=== PATIENT | female | born 1995 | race Caucasian/White ===

== ENCOUNTER 2020-04-02 13:39 | Outpatient (REF) | payer OTHER, SELFPAY | END 2020-04-02 13:40 | disposition home or self-care (01) | LOC: HO.LAB 13:39 | PROVIDERS: Visit Provider Advanced Practice Midwife | DX: Z01.419 Encounter for gynecological examination (general) (routine) without abnormal findings (principal) | CPT/HCPCS: 88142 ==

== ENCOUNTER 2020-06-07 09:28 | Outpatient (REF) | payer OTHER, SELFPAY ==
[2020-06-07 09:48] LABS: COVID-19 Test Negative (Negative)
== END 2020-06-07 09:29 | disposition home or self-care (01) ==
LOC: HO.EMPCOV 09:28
PROVIDERS: PCP Internal Medicine; Visit Provider Internal Medicine
DX: Z20.828 Contact with and (suspected) exposure to other viral communicable diseases (principal)
CPT/HCPCS: 87635; C9803

== ENCOUNTER 2020-06-09 09:26 | Outpatient (REF) | payer OTHER, SELFPAY ==
[2020-06-09 09:42] LABS: COVID-19 Test Negative (Negative); IDNOW Serial# 55D5AD1C
== END 2020-06-09 09:27 | disposition home or self-care (01) ==
LOC: HO.EMPCOV 09:26
PROVIDERS: PCP Internal Medicine; Visit Provider Internal Medicine
DX: Z20.828 Contact with and (suspected) exposure to other viral communicable diseases (principal)
CPT/HCPCS: 87635; C9803

== ENCOUNTER 2020-07-29 11:00 | Outpatient (RCR) | payer OTHER, SELFPAY | END 2020-09-09 13:49 | disposition home or self-care (01) | LOC: HO.PT 11:00 | PROVIDERS: Visit Provider Physician Assistant | DX: M22.2X1 Patellofemoral disorders, right knee (principal); M76.9 Unspecified enthesopathy, lower limb, excluding foot | CPT/HCPCS: 97110; 97112; 97140; 97161; 97530 ==

== ENCOUNTER 2021-03-20 13:48 | Outpatient (REF) | payer OTHER, SELFPAY ==
[2021-03-20 14:22] LABS: COVID-19 Test Negative (Negative)
== END 2021-03-20 13:49 | disposition home or self-care (01) ==
LOC: HO.LAB 13:48
PROVIDERS: PCP Internal Medicine; Visit Provider Internal Medicine
DX: Z20.822 Contact with and (suspected) exposure to COVID-19 (principal)
CPT/HCPCS: 36415; 87635

== ENCOUNTER 2021-04-22 08:11 | Outpatient (REF) | payer OTHER, SELFPAY | END 2021-04-22 08:12 | disposition home or self-care (01) | LOC: HO.HOSX 08:11 | PROVIDERS: Visit Provider Physician Assistant | DX: Z13.89 Encounter for screening for other disorder (principal) ==

== ENCOUNTER 2021-05-04 18:44 | Outpatient (REF) | payer OTHER, SELFPAY ==
--- NOTE | ~2021-05-04 | MR_ITS ---
EXAMINATION: MR KNEE WITHOUT CONTRAST, LEFT CLINICAL INFORMATION: Posterior left knee pain and buckling. Recurrent patellar dislocation. COMPARISON: None. TECHNIQUE: MRI of the knee without contrast was performed using routine sequences on a high-field scanner. FINDINGS: MENISCI: Medial Meniscus: Intact. Lateral Meniscus: Intact. LIGAMENTS: Cruciate: Intact. Collateral: Intact. EXTENSOR MECHANISM: The patella is currently well seated within the trochlea. Normal patellofemoral alignment. Intact quadriceps and patellar tendons. ARTICULAR CARTILAGE/BONE: Patellofemoral Compartment: Full-thickness articular cartilage defect at the inferior aspect the lateral patellar facet measuring 1.2 x 0.5 cm (CC by ML) with underlying marrow edema. Medial Compartment: Normal. Lateral Compartment: Normal. JOINT FLUID AND BURSAE: Trace joint effusion and trace Mane's cyst. MR/MR knee LT wo con IMPRESSION: 1. Full-thickness articular cartilage defect at the inferior aspect of the lateral patellar facet measuring 1.2 x 0.5 cm with underlying marrow edema. 2. Trace joint effusion and trace Mane's cyst. 3. No acute meniscal or ligamentous injury.
== END 2021-05-04 18:45 | disposition home or self-care (01) ==
LOC: HO.MRI 18:44
PROVIDERS: Visit Provider Physician Assistant
DX: Z01.419 Encounter for gynecological examination (general) (routine) without abnormal findings (principal); M22.02 Recurrent dislocation of patella, left knee; R68.82 Decreased libido
CPT/HCPCS: 73721

== ENCOUNTER → 2021-05-25 10:32 | Outpatient (BNVA) | payer OTHER, SELFPAY | PROVIDERS: PCP Student in an Organized Health Care Education/Training Program; Visit Provider Physician Assistant ==

== ENCOUNTER 2021-08-09 11:00 | Outpatient (RCR) | payer OTHER, SELFPAY ==
--- NOTE | 2021-06-22 12:02 | MHC.PT.EP ---
[facility] [place] [facility] [place] [facility] [place] [facility] [address] Willam Suárez [address] [phone] F: [phone] F: [phone] F: [phone] F: [phone] Physical Therapy Plan of Care Date of Evaluation: Date of Surgery: NA Diagnosis: Recurrent dislocation of patella, L knee Assessment: Shaye is a 25 year old female who is referred to PT for recurrent dislocation of L knee . Pt reports of sustaining patellar dislocation about 2.5 months back. Her patella relocated spontaneously however had significant pain and swelling after. On PT examination she presents with 8/10 pain with stair negotiation, knee bending, and running, TTP over infero-medial aspect of patella, altered patella position, decreased muscle strength, impaired posture and gait. She is independent with all ADLs but has pain with activities requiring her to stand for long, run, knee bending and stair negotiation. 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 She would benefit from skilled PT to address the aforementioned impairments and improve tolerance to functional activities. Frequency and Duration: The patient will be seen 2/week for 7 weeks Short Term Goals: 1. Pt will have 50% decrease in pain in 2 weeks which will enable her to walk after prolonged sitting without pain. 2. Pt will be able to move her knee through full ROM without pain which will enable her to negotiate stairs without pain in 3 weeks Retirement Goals: 1. Pt will demonstrate an increase in muscle strength by 1 grade which will enable her return to light jogging without pain in 5 weeks. 2. Pt will return to PLOF- skiiing, playing soft ball without pain in 7 weeks. Treatment Plan: Modalities to reduce pain, spasms and effusion. Manual therapy to restore motion and function. Therapeutic exercise to improve strength and flexibility. Neuromuscular re-education for posture and balance. Therapeutic activities to return to functional activities of daily living. Electronically signed by: Pam Ross PT DPT Please sign and return to therapist. Thank you for your referral.
--- NOTE | 2021-09-02 08:34 | MHC.PT.DC ---
[facility] [place] [facility] [place] [facility] [place] [facility] [address] Willam Suárez [address] [phone] F: [phone] F: [phone] F: [phone] F: [phone] Physical Therapy Discharge Report Diagnosis: Recurrent dislocation of patella, L knee Date of Surgery: NA Date of Evaluation: 06/22/21 Date of Discharge: 09/02/21 Treatments to Date: 9 Cancellations to Date: 1 No Shows to Date: 0 Discharge Status: Improved Function Independent with HEP Discharge Summary: Shaye was making good progress and demonstrated improved function as well. She is independent with her HEP. She is therefore being d/c from PT. Electronically signed by: Pam Ross PT DPT Please sign and return to therapist. Thank you for your referral.
== END 2021-09-02 08:35 | disposition home or self-care (01) ==
LOC: HO.PT 11:00
PROVIDERS: Visit Provider Physician Assistant
DX: M22.02 Recurrent dislocation of patella, left knee (principal); M22.8X2 Other disorders of patella, left knee
CPT/HCPCS: 97110; 97112; 97140; 97161; 97530

== ENCOUNTER 2022-01-05 09:26 | Outpatient (REF) | payer OTHER, SELFPAY ==
[2022-01-05 09:48] LABS: MANUAL DIFF FLAG NO
[2022-01-05 09:56] LABS: Basophils Percent Auto 0.5 % (0-2); Eosinophils Absolute Auto 0.2 X10*3/uL (0.0-0.4); Eosinophils Percent Auto 2.9 % (0-4); Hematocrit 38.1 % (37.0-47.0); Hemoglobin 12.5 g/dl (12.0-16.0); Imm Gran Abs Auto 0.02 X10*3/uL (0.00-0.03); Imm Gran Pct Auto 0.3 % (0.0-0.4); Lymphocytes Absolute Auto 1.4 X10*3/uL (1.2-4.9); Lymphocytes Percent Auto 22.7 % (20-40); Mean Corpuscular HGB Conc 32.8 g/dl (31.0-35.0); Mean Corpuscular Hemoglobin 30.5 pg (27.0-33.0); Mean Corpuscular Volume 92.9 fL (80.0-98.0); Mean Platelet Volume 10.1 fL (9.4-12.3); Monocytes Absolute Auto 0.6 X10*3/uL (0.1-1.2); Monocytes Percent Auto 9.8 % (2-11); Neutrophils Absolute Auto 3.8 x10*3/uL (2.0-8.3); Neutrophils Percent Auto 63.8 % (45-73); Platelet Count 218 X10*3/uL (160-400); Red Cell Distribution Width 12.2 % (11.0-16.0); White Blood Count 5.9 X10*3/uL (4.8-10.8)
[2022-01-05 10:29] LABS: Alanine Aminotransferase 23 U/L (0-31); Albumin Level 3.9 g/dL (3.5-5.0); Alkaline Phosphatase 59 U/L (39-117); Anion Gap 11 (12-20); Aspartate Amino Transferase 64 U/L (5-31); Bilirubin Total 0.5 mg/dL (0.0-1.0); Blood Urea Nitrogen 13 mg/dL (9-16); Calcium 8.6 mg/dL (8.4-10.2); Carbon Dioxide 24 mmol/L (22-29); Chloride 110 mmol/L (96-108); Cholesterol 141 mg/dL; Estimated Glomerular Filt Rate > 60; Glucose Fasting 91 mg/dL (60-99); HDL Cholesterol 45 mg/dL; LDL Cholesterol Calculated 85 mg/dl; Potassium 4.5 mmol/L (3.3-5.1); Sodium 140 mmol/L (135-145); Total Protein 6.6 g/dL (6.5-8.0); Triglycerides 59 mg/dL
[2022-01-05 10:51] LABS: Thyroid Stimulating Hormone 3.26 uIU/mL (0.32-4.0); Vitamin D 25-OH Total 58.8 ng/mL (>30)
[2022-01-05 10:56] LABS: Vitamin B12 425 pg/mL (200-900)
== END 2022-01-05 09:27 | disposition home or self-care (01) ==
LOC: HO.LAB 09:26
PROVIDERS: PCP Internal Medicine; Visit Provider Internal Medicine
DX: Z00.00 Encounter for general adult medical examination without abnormal findings (principal); R00.2 Palpitations; R53.82 Chronic fatigue, unspecified
CPT/HCPCS: 36415; 80053; 80061; 82306; 82607; 82746; 84443; 85025

== ENCOUNTER 2022-01-23 12:10 | Outpatient (REF) | payer OTHER, SELFPAY | END 2022-01-23 12:11 | disposition home or self-care (01) | LOC: HO.LNP 12:10 | PROVIDERS: Visit Provider Family Medicine | DX: N39.0 Urinary tract infection, site not specified (principal) | CPT/HCPCS: 87086; 87088; 87186 ==

== ENCOUNTER → 2022-02-01 13:00 | Outpatient (REF) | payer OTHER, SELFPAY ==
--- NOTE | 2022-02-01 11:45 | ECG_ITS ---
Hook-up date: 2022-02-01 12:10:00 Duration: 26:14:00 Test Indications: PALPITATIONS Medications: 308080 QRS complexes 5 Ventricular ectopics which represent <1 % of total QRS comp. * Supraventricular ectopics which represent % of total QRS comp. * Paced QRS complexs which represent % of total QRS comp. VENTRICULAR ECTOPY 5 Isolated 0 Bigeminal Cycles 0 Couplets 0 Runs 0 Beats in Runs * Beats LONGEST at * BPM at :: -- * Beats FASTEST at * BPM at :: -- SUPRAVENTRICULAR ECTOPY * Isolated * Couplets * Runs * Beats in Runs * Beats LONGEST at * BPM at :: -- * Beats FASTEST at * BPM at :: -- HEART RATES 51 MIN at 22:49:39 2022-02-01 80 AVG 157 MAX at 10:02:34 2022-02-02 LONGEST RR 1.2640 secs at 22:50:53 2022-02-01 S-T LEVELS Channel 1 - 128 mm at 12:10:00 2022-02-01 - 128 mm at 12:10:00 2022-02-01 Channel 2 - 128 mm at 12:10:00 2022-02-01 - 128 mm at 12:10:00 2022-02-01 Channel 3 - 128 mm at 03:12:91 -- - 128 mm at 03:12:91 Basic rhythm Normal sinus rhythm No long pause or profound bradycardia No dangerous dysrhythm periods Patient reported symptoms correlated with NSR Referred By: Dolly Mcneal Overread By: BELKIS AGUILAR MD
== END ==
LOC: HO.CARD 13:00
PROVIDERS: Visit Provider Internal Medicine
DX: R00.2 Palpitations (principal)
CPT/HCPCS: 93225; 93226

== ENCOUNTER 2022-03-17 09:27 | Outpatient (REF) | payer OTHER, SELFPAY ==
--- NOTE | ~2022-03-17 | US_ITS ---
EXAMINATION: US COMPLETE ABDOMEN WITH LIVER ELASTOGRAPHY CLINICAL INFORMATION: Elevated liver transaminase levels. COMPARISON: None. TECHNIQUE: Real-time imaging of the abdominal viscera. Noninvasive ultrasound liver fibrosis assessment is performed using Cordelia ElastPQ point quantification shear wave elastography (2D-SWE) with a C5-2 MHz transducer. Multiple elastography samples are obtained. FINDINGS: PANCREAS: Normal. The visualized pancreatic head and body are normal in appearance. The remainder of the pancreas is obscured from visualization by the overlying bowel gas. ABDOMINAL AORTA: The proximal, middle, and distal aortic segments are normal in caliber. INFERIOR VENA CAVA: Visualized portions are normal. LIVER: The liver demonstrates normal size, contour and heterogeneous echogenicity. No focal lesion or intrahepatic biliary duct dilatation. The right lobe measures 15.0 cm in length. The left lobe measures 10.4 cm in length. Portal flow is towards the liver (hepatopetal). Shear wave liver elastography median stiffness is 1.43 m/s (reference: normal median stiffness is 1.3 m/s or less). IQR/median stiffness to assess sampling precision is 0.08 (reference: good quality data set is IQR/median stiffness of 0.15 or less). GALLBLADDER: Normal. The gallbladder is physiologically distended without evidence of stones, sludge, polyps, wall thickening or pericholecystic fluid. COMMON BILE DUCT: Normal in caliber measuring 0.3 cm in diameter. RIGHT KIDNEY: Normal. No hydronephrosis. No renal calculi or focal parenchymal lesions. The kidney measures 10.4 cm in maximum dimension. LEFT KIDNEY: Normal. No hydronephrosis. No renal calculi or focal parenchymal lesions. The kidney measures 10.4 cm in maximum dimension. SPLEEN: Normal. The spleen measures 11.5 cm in maximum dimension. FREE FLUID: None. US/US abdomen comp w elastography IMPRESSION: 1. There is generalized increase in hepatic echotexture, consistent with fatty infiltration or hepatocellular disease. Please correlate clinically. No focal hepatic mass or intrahepatic biliary dilatation is seen. 2. Liver elastography: In the absence of other known clinical signs, measurements rule out compensated advanced chronic liver disease. If there are known clinical signs, further testing may be needed for confirmation. REFERENCE: Society of Radiologists in Ultrasound Liver Stiffness Thresholds (2020): LIVER STIFFNESS THRESHOLDS: *Liver Stiffness equal or less than 1.3 m/s: High probability of being normal. *Liver Stiffness less than 1.7 m/s: In the absence of other known clinical signs, rules out compensated advanced chronic liver disease. *Liver Stiffness 1.7-2.1 m/s: Suggestive of compensated advanced chronic liver disease but need further test for confirmation. *Liver Stiffness over 2.1 m/s: Rules in compensated advanced chronic liver disease. *Liver Stiffness over 2.4 m/s: Suggestive of clinically significant portal hypertension. QUALITY OF DATA SET: *IQR/Median value equal or less than 0.15 implies a quality data set. *IQR/Median value over 0.15 implies a poor quality data set. SIGNIFICANT CHANGE FROM PRIOR EXAM: Significant change if liver stiffness measurement is 10% or greater from prior exam. OTHER CONSIDERATIONS: The stage of liver fibrosis may be overestimated in the setting of acute hepatitis, liver inflammation, elevated liver function tests, hepatic vascular congestion, obstructive cholestasis, non-fasting state, and infiltrative diseases such as amyloidosis and lymphoma. In some patients with NAFLD, the liver stiffness thresholds for compensated advanced chronic liver disease may be lower. In causes other than viral hepatitis and NAFLD, liver stiffness thresholds are not well established.
== END 2022-03-17 09:28 | disposition home or self-care (01) ==
LOC: HO.US 09:27
PROVIDERS: Visit Provider Internal Medicine
DX: R74.01 Elevation of levels of liver transaminase levels (principal)
CPT/HCPCS: 76705; 76981

== ENCOUNTER 2022-05-28 08:00 | Outpatient (REF) | payer OTHER, SELFPAY ==
[2022-05-28 09:00] LABS: Influenza A PCR NEGATIVE (Negative); Influenza B PCR NEGATIVE (Negative); Resp Syncy Virus RNA Qual PCR NEGATIVE (Negative); SARS COV2 PCR INHOUSE NEGATIVE (Negative)
== END 2022-05-28 08:01 | disposition home or self-care (01) ==
LOC: HO.LAB 08:00
PROVIDERS: Visit Provider Internal Medicine
DX: Z20.822 Contact with and (suspected) exposure to COVID-19 (principal)
CPT/HCPCS: 0241U

== ENCOUNTER 2022-07-11 12:51 | Outpatient (REF) | payer OTHER, SELFPAY ==
[2022-07-11 14:21] LABS: INTERNATIONAL NORM RATIO 0.9 (0.9-1.1); Prothrombin Time 10.8 SEC (10.0-13.1)
[2022-07-11 15:38] LABS: Alanine Aminotransferase 6 U/L (0-31); Albumin Level 4.1 g/dL (3.5-5.0); Alkaline Phosphatase 56 U/L (39-117); Aspartate Amino Transferase 16 U/L (5-31); Bilirubin Direct 0.2 mg/dL (0.0-0.5); Bilirubin Total 0.6 mg/dL (0.0-1.0); Total Protein 6.6 g/dL (6.5-8.0)
[2022-07-12 08:31] LABS: Hepatitis A Antibody IgG Nonreactive (Nonreactive); ~Hepatitis A Antibody IgG 0.25 S/CO (0.00-0.99)
[2022-07-12 08:32] LABS: HBS Num1 50.18 mIU/mL (0-7.99); HBsAGNum1 0.35 S/CO (0.00-0.99); HIV AB/AG Nonreactive (Nonreactive); HIV Num 1 0.06 S/CO (0.00-0.99); Hepatitis B Core Antibody Nonreactive (Nonreactive); Hepatitis B Surface Antigen Negative (Negative); ~HepC Num1 0.12 S/CO (0.00-0.79); ~Hepatitis B Surface Antibody REACTIVE (Nonreactive); ~Hepatitis C Antibody Nonreactive (Nonreactive)
[2022-07-25 08:19] LABS: Phosphatidylethanol 16:0-18:1 None Detected
== END 2022-07-11 12:52 | disposition home or self-care (01) ==
LOC: HO.LAB 12:51
PROVIDERS: PCP Internal Medicine; Visit Provider Internal Medicine
DX: Z11.4 Encounter for screening for human immunodeficiency virus [HIV] (principal); R13.10 Dysphagia, unspecified; R74.01 Elevation of levels of liver transaminase levels
CPT/HCPCS: 36415; 80076; 80321; 85610; 86704; 86706; 86708; 86803; 87340; 87389

== ENCOUNTER 2022-07-12 07:53 | Outpatient (REF) | payer OTHER, SELFPAY ==
--- NOTE | ~2022-07-12 | FL_ITS ---
EXAMINATION: FL BARIUM SWALLOW CLINICAL INFORMATION: Dysphagia COMPARISON: None TECHNIQUE: Barium swallow examination is performed using fluoroscopic evaluation in addition to multiple fluoroscopic spot views. The patient is imaged both upright and prone and using both thick and thin sulfate along with effervescent granules. Fluoroscopy time: 1.6 minutes DAP: 4.926 Gycm2 Images: 42 FINDINGS: Following oral administration of thin, thick barium and barium coated turkey in upright view there is normal propagation of bolus from the oral cavity through the pharynx, esophagus into stomach without any evidence of obstruction, narrowing or stricture. There is no laryngeal aspiration or penetration. On placing patient prone lying and oral administration of thin barium there is good distention of the entire esophagus without any intrinsic or extrinsic compression. No mucosal irregularity seen in the pharynx or the esophagus. There is no hiatal hernia or gastroesophageal reflux. FL/FL barium swallow IMPRESSION: Unremarkable barium swallow in upright and lying position.
== END 2022-07-12 07:54 | disposition home or self-care (01) ==
LOC: HO.XRAY 07:53
PROVIDERS: PCP Internal Medicine; Visit Provider Internal Medicine
DX: R13.10 Dysphagia, unspecified (principal)
CPT/HCPCS: 74220

== ENCOUNTER → 2022-09-05 12:53 | Outpatient (BNVA) | payer OTHER, SELFPAY | PROVIDERS: PCP Internal Medicine; Visit Provider Internal Medicine | DX: Z13.89 Encounter for screening for other disorder (principal) ==

== ENCOUNTER → 2023-03-21 09:01 | Outpatient (BNVA) | payer OTHER, SELFPAY | PROVIDERS: PCP Internal Medicine; Visit Provider Physician Assistant | DX: Z13.89 Encounter for screening for other disorder (principal) | CPT/HCPCS: 99203 ==

== ENCOUNTER 2023-04-17 11:44 | Outpatient (AMB) | payer OTHER, SELFPAY ==
[2023-04-17 12:08] VITALS: BP 118/72; PULSE 92; O2SAT 97; BMI 21.6
--- NOTE | 2023-04-17 12:08 | MHC.OFFWIV ---
Intake Vital Signs 04/17/23 12:08 Height 5 ft 8 in Weight 142 lb 3 oz BMI 21.6 BP 118/72 Blood Pressure Location Lt brachial Position Sitting Pulse 92 Pulse Source Pulse Oximeter Pulse Oximetry (%) 97 Oxygen Delivery Method Room Air Intake Visit Reasons: EST/UTI Patient Tobacco Use Status: Never used Tobacco Allergies amoxicillin [Augmentin] Adverse Reaction (Unknown, Verified 04/17/23 12:10) hives Medication List - Last Reconciled 04/17/23 by Flynn Williamson MD cholecalciferol (vitamin D3) 50 mcg PO DAILY diphenhydramine HCl (Allergy Relief (diphenhydramine)) 25 mg PO BEDTIME levonorgestrel-ethinyl estrad 0.15 mg-30 mcg (91) (Jolessa) 1 tab PO DAILY omeprazole 20 mg PO BID 8 weeks ubidecarenone-omega 3-vit E 25-150-200 mg-mg-unit (Co N-00-Cbhduyk E-Fish Oil) 1 cap PO DAILY HPI EST/UTI HPI Details Patient woke up this morning with frequency and urgency of urination and then noticed blood in her urine Patient is also having mild suprapubic discomfort Review of system: There is no nausea vomiting no back pain no chills no fever. UA shows 3+ leuk Estrace and 3+ blood I am treating her with Macrobid 100 b.i.d. for 5 days Urine sent for culture. [facility] Medical History History of inguinal hernia History of depression Hx of anxiety disorder Hx of seasonal allergies Surgical History History of wisdom tooth extraction Hx of knee surgery Hx of hiatal hernia Family History Mother History of breast cancer Maternal Grandmother History of breast cancer Social History Housing: House Alcohol intake: current Alcohol intake frequency: a few times a week Alcohol type: wine Patient Tobacco Use Status: Never used Tobacco e-Cigarette/Vaping Use: Never Used Second Hand Smoke Exposure: No service: No Current occupational status: employed Current occupation: rt handed/[employer] [place] [employer]. Current occupational exposures/hazards: No Cognitive needs: No Hearing needs: No Vision needs: No Female Reproductive History Menstrual Age of Menarche: 10 Review of Systems Const All systems reviewed & are unremarkable except as noted in HPI and below Physical Exam Vital Signs: Last Vital Signs Pulse 92 04/17/23 12:08 BP 118/72 04/17/23 12:08 Pulse Ox 97 04/17/23 12:08 Oxygen Delivery Method Room Air 04/17/23 12:08 BMI result Body Mass Index 21.6 Const General: no acute distress Orientation/consciousness: patient oriented x3 Eyes General: appearance normal, both eyes and all related structures Resp Effort & Inspection: normal respiratory effort and able to speak in complete sentences Auscultation: clear to auscultation bilaterally Cardio Other: S1 S2 GI Other: No suprapubic pain General: Yes no CVA tenderness Back/Spine/Pelvis Back: no CVA tenderness Neuro General: patient oriented x3 Psych Mental Status: mental status grossly normal Results AMB Urinalysis, Automated UA Leukoctes 500 Sheng/uL Last Edit by Tamiko Almaraz CMA on 04/17/23 12:30 UA Nitrite Negative Last Edit by Tamiko Almaraz CMA on 04/17/23 12:30 UA Urobilinogen 0.2 mg/dL Last Edit by Tamiko Almaraz CMA on 04/17/23 12:30 UA Protein 15 mg/dL Last Edit by Tamiko Almaraz CMA on 04/17/23 12:30 UA pH 6.0 Last Edit by Tamiko Almaraz CMA on 04/17/23 12:30 UA Blood 200 Jason/uL Last Edit by Tamiko Almaraz CMA on 04/17/23 12:30 UA Specific [place] 1.010 Last Edit by Tamiko Almaraz CMA on 04/17/23 12:30 UA Ketone Negative Last Edit by Tamiko Almaraz CMA on 04/17/23 12:30 UA Bilirubin 0 mg/dL Last Edit by Tamiko Almaraz CMA on 04/17/23 12:30 UA Glucose 0 mg/dL Last Edit by Tamiko Almaraz CMA on 04/17/23 12:30 Results Reviewed Results Reviewed: Laboratory Last Values Urine pH (Auto) 6.0 04/17/23 12:28 Specific [place] (Auto) 1.010 04/17/23 12:28 Urine Protein (Auto) 15 mg/dL 04/17/23 12:28 Glucose (UA)(Auto) 0 mg/dL 04/17/23 12:28 Urine Ketones (Auto) Negative 04/17/23 12:28 Urine Blood (Auto) 200 Jason/uL 04/17/23 12:28 Urine Nitrite (Auto) Negative 04/17/23 12:28 Urine Bilirubin (Auto) 0 mg/dL 04/17/23 12:28 Urine Urobilinogen (Auto) 0.2 mg/dL 04/17/23 12:28 Leukocyte Esterase (Auto) 500 Sheng/uL 04/17/23 12:28 Assessment & Plan Assessment & Plan (1) Acute cystitis: Code(s): N30.00 - Acute cystitis without hematuria Qualifiers: Hematuria presence: with hematuria Qualified Code(s): N30.01 - Acute cystitis with hematuria Plan Patient woke up this morning with frequency and urgency of urination and then noticed blood in her urine Patient is also having mild suprapubic discomfort Review of system: There is no nausea vomiting no back pain no chills no fever. UA shows 3+ leuk Estrace and 3+ blood I am treating her with Macrobid 100 b.i.d. for 5 days Urine sent for culture. Orders: Orders Urine Culture Today N30.00 - Acute cystitis without hematuria AMB Urinalysis Automated Today N30.00 - Acute cystitis without hematuria Medications: New nitrofurantoin monohyd/m-cryst 100 mg (Macrobid) must administer with a meal/food 100 mg PO Q12H 10 caps 0RF 5 days Coding Level of Care Code Est Pt Level 3 (14513) Diagnoses Acute cystitis with hematuria N30.01 Hematuria presence: with hematuria
== END 2023-04-17 14:33 | disposition home or self-care (01) ==
PROVIDERS: PCP Internal Medicine; Visit Provider Internal Medicine
DX: N30.00 Acute cystitis without hematuria (principal); N30.01 Acute cystitis with hematuria
CPT/HCPCS: 81003; 99213

== ENCOUNTER 2023-04-17 16:47 | Outpatient (REF) | payer OTHER, SELFPAY | END 2023-04-17 16:48 | disposition home or self-care (01) | LOC: HO.LNP 16:47 | PROVIDERS: Visit Provider Internal Medicine | DX: N30.00 Acute cystitis without hematuria (principal) | CPT/HCPCS: 87086; 87088; 87186 ==

== ENCOUNTER 2023-05-17 15:51 | Emergency (ER) | payer OTHER, SELFPAY ==
--- NOTE | ~2023-05-17 | XR_ITS ---
EXAMINATION: XR CHEST CLINICAL INFORMATION: Pain. COMPARISON: Chest radiograph 02/27/2019. TECHNIQUE: 2 views of the chest were obtained. FINDINGS: No significant abnormality is noted involving the heart, lungs, mediastinum, bony thorax or soft tissues. XR/XR chest 2V IMPRESSION: Unremarkable examination.
--- NOTE | 2023-05-17 15:55 | ED_ITS ---
HPI - General Adult General Chief complaint: Chest Pain Stated complaint: chest pain Time Seen by Provider: 05/17/23 16:03 Source: patient Mode of arrival: ambulatory Limitations: no limitations History of Present Illness HPI narrative: 27 yo female on OCPs here with intermittent pleuritic R sided chest pain that is not going away. Not associated with trauma, no fevers, no recent travel/procedures. No hx of VTE. No recent vaccines. She has not had this before. MD complaint: chest pain Onset (ago): day(s) (2) Location: chest Radiation: non-radiation Severity: mild Quality: stabbing Pain Consistency: intermittent Relieving factors: none Exacerbating factors: other (inspiration) Associated symptoms: denies other symptoms Treatments prior to arrival: none Related Data Home Medications Medication Instructions Recorded Confirmed diphenhydramine HCl 25 mg tablet 25 mg PO BEDTIME 04/04/21 04/17/23 (Allergy Relief (diphenhydramine)) cholecalciferol (vitamin D3) 50 50 mcg PO DAILY 07/11/22 04/17/23 mcg (2,000 unit) capsule ubidecarenone-omega 3-vit E 25 1 cap PO DAILY 09/05/22 04/17/23 mg-150 (90-60) mg-200 unit capsule (Co D-56-Ykzbzvg E-Fish Oil) Previous Rx's Medication Instructions Recorded omeprazole 20 mg capsule,delayed 20 mg PO BID 8 weeks #112 caps 09/05/22 release nitrofurantoin 100 mg PO Q12H 5 days #10 caps 04/17/23 monohydrate/macrocrystals 100 mg capsule (Macrobid) levonorgestrel 0.15 mg-ethinyl 1 tab PO DAILY #91 ea 05/14/23 estradiol 30 mcg tablets,3 mos pack(91) (Jolessa) Allergies Allergy/AdvReac Type Severity Reaction Status Date / Time amoxicillin [Augmentin] AdvReac Unknown hives Verified 04/17/23 12:10 Review of Systems 2 Review of Systems: Constitutional : No Weight loss, No Fever, No Chills ENT/Mouth : No sore throat, No Rhinorrhea Eyes: No Eye Pain, No Swelling Cardiovascular : pos Chest Pain, no SOB, no Dyspnea on Exertion, No Orthopnea, No Edema, No Palpitations Respiratory : No Cough, No Sputum Gastrointestinal : no Nausea, No Vomiting, No Diarrhea, No abdominal Pain, No Hematochezia, No Melena Genitourinary : No Dysuria, No Urinary Frequency Musculoskeletal : No joint pain, No Myalgias, No Joint Swelling Skin : No Skin Lesions, No rash Neuro : No Weakness, No Numbness, No Dizziness, No Headache Psych : No Anxiety/Panic, No Depression All other systems reviewed and are negative [facility] Past Medical History Source: old records reviewed Medical History History of inguinal hernia History of depression Hx of anxiety disorder Hx of seasonal allergies Surgical History History of wisdom tooth extraction Hx of knee surgery Hx of hiatal hernia Family History Family History Mother History of breast cancer Maternal Grandmother History of breast cancer Social History Social History Housing: House Alcohol intake: current Alcohol intake frequency: a few times a week Alcohol type: wine Patient Tobacco Use Status: Never used Tobacco e-Cigarette/Vaping Use: Never Used Second Hand Smoke Exposure: No Advance Directives: No Advance Directives Information Provided: No service: No Current occupational status: employed Current occupation: rt handed/[employer] [facility] [place] [employer]. Current occupational exposures/hazards: No Cognitive needs: No Hearing needs: No Vision needs: No Physical Exam ED Vital Signs: Vital Signs - 24 hr 05/17/23 16:43 Temperature 99.2 F Pulse Rate 87 Respiratory Rate 16 Blood Pressure 121/71 Pulse Oximetry 98 Oxygen Delivery Method Room Air BMI result Body Mass Index 22.0 Appearance: Alert. Oriented X3. No acute distress. Eyes: Pupils equal, round and reactive to light. ENT: Pharynx normal. Neck: Normal inspection. Neck supple. CVS: Normal heart rate and rhythm. Pulses normal. Chest: ttp along R sided which reproduces pain Respiratory: No respiratory distress. Breath sounds normal. Abdomen: Soft and nontender. Skin: Skin warm and dry. Normal skin color. Normal skin turgor. Extremities: No lower extremity edema. No calf ttp Neuro: Oriented X 3. No motor deficit. No sensory deficit. Course Course Course Narrative: This is a rapid medical exam: Additional HPI, ROS, PE not included below will be deferred to primary provider. Patient is a 27-year-old female on OCP presenting to the ED with 2-3 days of chest pain. Plan: EKG, labs including d-dimer Medical Decision Making Medical Decision Making [facility] Narrative: 27 yo female with PMH of OCP use no precipitating illness or events but here with R sided pleuritic chest pain - at this time given OCP use will obtain EKG, labs, ddimer and troponin possible pericarditis, MSK, VTE, myocarditis. Differential Diagnosis Differential Diagnoses: The differential diagnosis associated with the presentation includes pericarditis, MSK, VTE, myocarditis Admission/Observation Consideration of admission/observation: Escalation of care including admission/observation considered negative workup stable for DC Lab Data [facility] Lab Attestation statement: I reviewed the patient's lab results. 05/17/23 16:14 05/17/23 16:14 Labs: Lab Results 05/17/23 Range/Units 16:14 WBC 7.5 (4.8-10.8) X10*3/uL RBC 4.20 (4.20-5.50) X10*6/uL Hgb 12.8 (12.0-16.0) g/dl Hct 38.6 (37.0-47.0) % MCV 91.9 (80.0-98.0) fL MCH 30.5 (27.0-33.0) pg MCHC 33.2 (31.0-35.0) g/dl RDW 12.1 (11.0-16.0) % Plt Count 248 (160-400) X10*3/uL MPV 9.5 (9.4-12.3) fL Immature Gran % (Auto) 0.4 (0.0-0.4) % Neut % (Auto) 57.5 (45-73) % Lymph % (Auto) 31.9 (20-40) % Anson % (Auto) 8.0 (2-11) % Eos % (Auto) 1.7 (0-4) % Baso % (Auto) 0.5 (0-2) % Lymph # (Auto) 2.4 (1.2-4.9) X10*3/uL Anson # (Auto) 0.6 (0.1-1.2) X10*3/uL Eos # (Auto) 0.1 (0.0-0.4) X10*3/uL Baso # (Auto) 0.0 (0.0-0.2) X10*3/uL Abs Immat Gran (auto) 0.03 (0.00-0.03) X10*3/uL Absolute Neuts (auto) 4.3 (2.0-8.3) x10*3/uL Absolute Nucleated RBC 0.000 (0.0-0.012) X10*3/uL Nucleated RBC % (auto) 0.0 (0.0-0.2) /100WBC D-Dimer High Sensitivty < 150 NG/ML Sodium 139 (135-145) mmol/L Potassium 3.7 (3.3-5.1) mmol/L Chloride 109 H (96-108) mmol/L Carbon Dioxide 26 (22-29) mmol/L Anion Gap 8 L (12-20) BUN 14 (9-16) mg/dL Creatinine 0.87 (0.5-1.4) mg/dL Estim Creat Clear Calc TNP Estimated GFR > 60 Random Glucose 117 H (60-115) mg/dL Calcium 8.8 (8.4-10.2) mg/dL Troponin I High Sens < 2.7 (<3.5-17.0) ng/L Independent Interpretation I performed an independent interpretation of an: EKG and Plain X-Ray (normal ) Interpretation: Rate: 91 Rhythm: NSR [place]: normal Normal P waves. Normal KIMI. Normal QRS complex. ST T wave : no KATHY, inverted T wave III qTC: normal prior studies: none The study has been interpreted contemporaneously by me. . Radiology Impression Discussion of test interpretation with radiology: I have reviewed the radiologist's reading. Discharge Plan Discharge Clinical Impression: Acute costochondritis Patient Disposition: Home, Self-Care Instructions: Costochondritis (ED) Additional Instructions: negative EKG, troponin and ddimer return for fevers, worsening pain, shortness of breath or any other concerns. Prescriptions: No Action levonorgestrel-ethinyl estrad [Jolessa] 0.15 mg-30 mcg (91) tablets,dose pack,3 month 1 tab PO DAILY Qty: 91 0RF nitrofurantoin monohyd/m-cryst [Macrobid] 100 mg capsule 100 mg PO Q12H 5 Days Qty: 10 0RF Rx Instructions: must administer with a meal/food diphenhydramine HCl [Allergy Relief(diphenhydramin)] 25 mg tablet 25 mg PO BEDTIME cholecalciferol (vitamin D3) 50 mcg (2,000 unit) capsule 50 mcg PO DAILY Co F-56-Lyyvilz E-Fish Oil 25-150-200 mg-mg-unit capsule 1 cap PO DAILY omeprazole 20 mg capsule,delayed release(DR/EC) 20 mg PO BID 56 Days Qty: 112 0RF
--- NOTE | 2023-05-17 15:55 | ECG_ITS ---
Test Reason : CHEST PAIN Blood Pressure : / mmHG Vent. Rate : 091 BPM Atrial Rate : 091 BPM P-R Int : 108 ms QRS Dur : 074 ms QT Int : 346 ms P-R-T Axes : 062 036 042 degrees QTc Int : 425 ms Sinus rhythm with sinus arrhythmia with short AR Otherwise normal ECG When compared with ECG of 14-NOV-2010 18:37, No significant change was found Referred By: Kay Buck Electronically Signed By:BELKIS AGUILAR MD
[2023-05-17 16:30] LABS: MANUAL DIFF FLAG NO
[2023-05-17 16:35] LABS: Basophils Percent Auto 0.5 % (0-2); Eosinophils Absolute Auto 0.1 X10*3/uL (0.0-0.4); Eosinophils Percent Auto 1.7 % (0-4); Hematocrit 38.6 % (37.0-47.0); Hemoglobin 12.8 g/dl (12.0-16.0); Imm Gran Abs Auto 0.03 X10*3/uL (0.00-0.03); Imm Gran Pct Auto 0.4 % (0.0-0.4); Lymphocytes Absolute Auto 2.4 X10*3/uL (1.2-4.9); Lymphocytes Percent Auto 31.9 % (20-40); Mean Corpuscular HGB Conc 33.2 g/dl (31.0-35.0); Mean Corpuscular Hemoglobin 30.5 pg (27.0-33.0); Mean Corpuscular Volume 91.9 fL (80.0-98.0); Mean Platelet Volume 9.5 fL (9.4-12.3); Monocytes Absolute Auto 0.6 X10*3/uL (0.1-1.2); Neutrophils Absolute Auto 4.3 x10*3/uL (2.0-8.3); Neutrophils Percent Auto 57.5 % (45-73); Platelet Count 248 X10*3/uL (160-400); Red Cell Distribution Width 12.1 % (11.0-16.0); White Blood Count 7.5 X10*3/uL (4.8-10.8)
[2023-05-17 16:42] LABS: D Dimer High Sensitivity < 150 NG/ML
[2023-05-17 16:43] VITALS: BP 121/71; PULSE 87; RESP 16; TEMP 37.3; O2SAT 98; BMI 22.0
[2023-05-17 16:44] LABS: Anion Gap 8 (12-20); Blood Urea Nitrogen 14 mg/dL (9-16); Calcium 8.8 mg/dL (8.4-10.2); Carbon Dioxide 26 mmol/L (22-29); Chloride 109 mmol/L (96-108); Estimated Glomerular Filt Rate > 60; Glucose Random 117 mg/dL (60-115); Potassium 3.7 mmol/L (3.3-5.1); Sodium 139 mmol/L (135-145)
[2023-05-17 16:54] LABS: Troponin-I High Sensitivity < 2.7 ng/L (<3.5-17.0)
== END 2023-05-17 19:29 | disposition home or self-care (01) ==
PROVIDERS: Registered Nurse Emergency; Emergency Provider Emergency Medicine; PCP Internal Medicine
DX: R07.89 Other chest pain (principal); M94.0 Chondrocostal junction syndrome [Tietze]; Z79.899 Other long term (current) drug therapy
CPT/HCPCS: 36415; 71046; 80048; 84484; 85025; 85379; 93005; 99283

== ENCOUNTER → 2023-05-17 15:55 | Outpatient (BNV) | payer OTHER, SELFPAY | PROVIDERS: Emergency Provider Emergency Medicine; PCP Internal Medicine; Visit Provider Internal Medicine Cardiovascular Disease | DX: R07.9 Chest pain, unspecified (principal) | CPT/HCPCS: 93010 ==

== ENCOUNTER 2023-07-03 09:15 | Outpatient (REF) | payer OTHER, SELFPAY | END 2023-07-03 09:16 | disposition home or self-care (01) | LOC: HO.LNP 09:15 | PROVIDERS: PCP Internal Medicine; Visit Provider Advanced Practice Midwife | DX: Z01.419 Encounter for gynecological examination (general) (routine) without abnormal findings (principal) | CPT/HCPCS: 88142 ==

== ENCOUNTER 2023-07-03 09:15 | Outpatient (AMB) | payer OTHER, SELFPAY ==
--- NOTE | 2023-07-03 09:23 | A.OFFVIS_ITS ---
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 Doing well with no concerns. She tries to eat healthy and stays active with exercise. Currently taking pr enatal vitamins, plans to start a family as soon as this summer. Would like to stay on her control for an now. She denies any contraindications to control such as: migraines with aura, history of DVT or pulmonary emboli, high blood pressure, liver disease, thrombolic disorders, Lupus, +SOCO, breast cancer, or smoking. She denies vaginal itching and irritation. STI screening offered; she declined. Denies family history of breast, ovarian or colon cancer. Last pap smear 2019, negative. [facility] Medical History History of inguinal hernia History of depression Hx of anxiety disorder Hx of seasonal allergies Surgical History History of wisdom tooth extraction Hx of knee surgery Hx of hiatal hernia Family History Mother History of breast cancer Maternal Grandmother History of breast cancer Social History Housing: House Alcohol intake: current Alcohol intake frequency: a few times a week Alcohol type: wine Patient Tobacco Use Status: Never used Tobacco e-Cigarette/Vaping Use: Never Used Second Hand Smoke Exposure: No service: No Current occupational status: employed Current occupation: rt 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 Current occupational exposures/hazards: No Cognitive needs: No Hearing needs: No Vision needs: No Female Reproductive History Menstrual Age of Menarche: 10 Date of last menstrual period: 06/19/23 control method: pills Total pregnancies: 0 Date of last pap smear: 04/02/20 (neg) Review of Systems Const All systems reviewed & are unremarkable except as noted in HPI and below Reports as per HPI Eyes Reports no additional complaints ENT Reports no additional complaints Card Reports no additional complaints Resp Reports no additional complaints GI Reports as per HPI and Reports no additional complaints Reports as per HPI Musc Reports no additional complaints Skin/Breast Reports as per HPI Neuro Reports no additional complaints Psych Reports no additional complaints Endo Reports no additional complaints Charlie/Lymph Reports no additional complaints Aller/Immun Reports no additional complaints Physical Exam Vital Signs: Last Vital Signs BP 90/62 07/03/23 09:24 BMI result Body Mass Index 23.4 Const General: cooperative, healthy appearing, no acute distress, well developed and alert Orientation/consciousness: patient oriented x3 HEENT Head: Yes normal to inspection Eyes General: appearance normal, both eyes and all related structures Neck Neck: Yes normal visual inspection Thyroid: Thyroid normal Chest Chest palpation & inspection: normal inspection of the chest and other (no puckering, dimpling, peau de orange, retraction, discharge, masses) Breast/axilla inspection: normal inspection of the breasts Breast/axilla palpation: normal palpation of the breasts Resp Effort & Inspection: normal respiratory effort GI Inspection: Yes normal to inspection Palpation (GI): Soft to palpation Rectal Exam - Female: deferred General: Yes bladder normal to palpation External Female Exam: normal external appearance and normal appearance of the urethra Speculum Exam - Vagina: normal appearance of the vagina, normal palpation and normal vaginal discharge Speculum Exam - Cervix: normal appearance of the cervix and normal palpation Bimanual exam- vagina & uterus: normal bimanual exam, normal palpation, uterine size normal, bladder normal to palpation, normal palpation and non-tender Bimanual Exam- Adnexa, other: no masses Skin General skin exam: no rashes or lesions noted Rashes: no rashes Neuro General: patient oriented x3 Cognition (Neuro): normal cognition Extrem General: Yes normal to inspection Psych Attitude: cooperative Thought process: Normal thought process present Assessment & Plan Assessment & Plan (1) Encounter for well woman exam with routine gynecological exam: Code(s): Z01.419 - Encounter for gynecological examination (general) (routine) without abnormal findings Plan Discussed: Current recommendations for pap smears per ASCCP guidelines. Breast awareness and periodic breast exams. Maintain a healthy lifestyle including a well balanced diet and routine exercise. Continue with PNV. When stopping control monitor menstrual cycles, if any missed menses to do a home test and then follow-up in the office. control hormone use warnings: go to ER if and loss of vision, blindness, severe headache, chest pain or difficulty breathing, severe abdominal pain, or any pain or swelling in an extremity. All of her questions and concerns were addressed to the best of my ability. RTO in one year for annual rn progressive care unit examination. This note is constructed using voice recognition software. While every effort has been made to ensure accuracy, surface water manager errors may have been included. Orders: Orders Pap Smear Today Z01.419 - Encounter for gynecological examination (general) (routine) without abnormal findings Medications: Refilled levonorgestrel-ethinyl estrad 0.15 mg-30 mcg (91) (Jolessa) 1 tab PO DAILY 91 ea 4RF Coding Level of Care Code Est Pt Prev Care 18-39y(16903) Diagnoses Encounter for well woman exam with routine gynecological exam Z01.419
[2023-07-03 09:24] VITALS: BP 90/62; BMI 23.4
== END 2023-07-03 10:02 | disposition home or self-care (01) ==
LOC: HO.HWS 09:15
PROVIDERS: PCP Internal Medicine; Visit Provider Advanced Practice Midwife
DX: Z01.419 Encounter for gynecological examination (general) (routine) without abnormal findings (principal)
CPT/HCPCS: 99395

== ENCOUNTER 2023-07-28 11:54 | Outpatient (AMB) | payer OTHER, SELFPAY ==
[2023-07-28 12:12] VITALS: BP 94/60; PULSE 72; TEMP 36.7; O2SAT 100; BMI 23.3
--- NOTE | 2023-07-28 12:12 | AM.OFFWIN_ITS ---
Intake Vital Signs 07/28/23 12:12 Height 5 ft 8 in Weight 153 lb BMI 23.3 BP 94/60 Blood Pressure Location Rt brachial Position Sitting Pulse 72 Pulse Source Pulse Oximeter Temp 98.1 F Temp Source Oral Pulse Oximetry (%) 100 Oxygen Delivery Method Room Air Intake Visit Reasons: EST/bladder infection (lobby) Intake Note: Pt is here today ?bladder infection Patient Tobacco Use Status: Never used Tobacco Allergies amoxicillin [Augmentin] Adverse Reaction (Unknown, Verified 07/28/23 12:15) hives HPI EST/bladder infection (lobby) HPI0 Details Patient is a 27-year-old female comes to the walk-in clinic complaining urinary frequency, dysuria and mild bladder pressure symptoms for the last few days. No report of nausea vomiting or diarrhea, flank or back pain, weakness or dizziness, fever or chills, significant abdominal pain, pelvic pain, ward blood in the urine, or other significant associated symptoms. No high-risk sexual intercourse reported, vaginal discharge, and she denies . [facility] Medical History History of inguinal hernia History of depression Hx of anxiety disorder Hx of seasonal allergies Surgical History History of wisdom tooth extraction Hx of knee surgery Hx of hiatal hernia Family History Mother History of breast cancer Maternal Grandmother History of breast cancer Social History Housing: House Alcohol intake: current Alcohol intake frequency: a few times a week Alcohol type: wine Patient Tobacco Use Status: Never used Tobacco e-Cigarette/Vaping Use: Never Used Second Hand Smoke Exposure: No service: No Current occupational status: employed Current occupation: rt handed/[employer] [place] Current occupational exposures/hazards: No Cognitive needs: No Hearing needs: No Vision needs: No Female Reproductive History Menstrual Age of Menarche: 10 Physical Exam Vital Signs: Last Vital Signs Temp 98.1 F 07/28/23 12:12 Pulse 72 07/28/23 12:12 BP 94/60 07/28/23 12:12 Pulse Ox 100 07/28/23 12:12 Oxygen Delivery Method Room Air 07/28/23 12:12 BMI result Body Mass Index 23.3 Const General: cooperative, healthy appearing, comfortable, no acute distress, alert, awake, Physically active and well groomed; No anxious, diaphoretic, ill appearing, intoxicated appearing, poor hygiene or tired appearing Nutritional Appearance: average body habitus Limitations: no limitations GI Palpation (GI): Soft to palpation, not firm, nontender, no guarding, not rigid and No hepatosplenomegaly present General: Yes no CVA tenderness Back/Spine/Pelvis Back: no CVA tenderness Psych Appearance: grossly normal Mental Status: mental status grossly normal Speech and movement: Normal speech and movement present Affect: normal affect Attitude: cooperative Thought process: Normal thought process present Insight: Good insight present (Psych) Judgement: Good judgement present (Psych) Results AMB Urinalysis, Automated UA Leukoctes 500 Sheng/uL Last Edit by Tamiko Almaraz CMA on 07/28/23 12:20 UA Nitrite Negative Last Edit by Tamiko Almaraz CMA on 07/28/23 12:20 UA Urobilinogen 0.2 mg/dL Last Edit by Tamkio Almaraz CMA on 07/28/23 12:20 UA Protein 30 mg/dL Last Edit by Tamiko Almaraz CMA on 07/28/23 12:20 UA pH 6.0 Last Edit by Tamiko Almaraz CMA on 07/28/23 12:20 UA Blood 200 Jason/uL Last Edit by Tamiko Almaraz CMA on 07/28/23 12:20 UA Specific Austin 1.020 Last Edit by Taimko Almaraz CMA on 07/28/23 12:20 UA Ketone Negative Last Edit by Tamiko Almaraz CMA on 07/28/23 12:20 UA Bilirubin 0 mg/dL Last Edit by Tamiko Almaraz CMA on 07/28/23 12:20 UA Glucose 0 mg/dL Last Edit by Tamiko Almaraz CMA on 07/28/23 12:20 Results Reviewed Results Reviewed: Laboratory Last Values Urine pH (Auto) 6.0 07/28/23 12:10 Specific Austin (Auto) 1.020 07/28/23 12:10 Urine Protein (Auto) 30 mg/dL 07/28/23 12:10 Glucose (UA)(Auto) 0 mg/dL 07/28/23 12:10 Urine Ketones (Auto) Negative 07/28/23 12:10 Urine Blood (Auto) 200 Jason/uL 07/28/23 12:10 Urine Nitrite (Auto) Negative 07/28/23 12:10 Urine Bilirubin (Auto) 0 mg/dL 07/28/23 12:10 Urine Urobilinogen (Auto) 0.2 mg/dL 07/28/23 12:10 Leukocyte Esterase (Auto) 500 Sheng/uL 07/28/23 12:10 Assessment & Plan Assessment & Plan (1) UTI (urinary tract infection): Code(s): N39.0 - Urinary tract infection, site not specified Qualifiers: Hematuria presence: with hematuria Urinary tract infection type: acute cystitis Qualified Code(s): N30.01 - Acute cystitis with hematuria Plan: Patient is a 27-year-old female with apparent simple cystitis, with protein blood and leuks in her urine dip today and complaining of dysuria and mild bladder pressure, and in the absence of , high-risk unprotected intercourse, or associated STD symptoms. She declines testing for these. Will treat her with Macrobid today, and we discussed getting adequate water intake to help clear the infection. She will follow up if symptoms persist or worsen, or go to the emergency department with worrisome symptoms. Orders: Orders AMB Urinalysis Automated 07/28/23 Z13.9 - Encounter for screening, unspecified Medications: New nitrofurantoin monohyd/m-cryst 100 mg (Macrobid) must administer with a meal/food 100 mg PO Q12H 10 caps 0RF 5 days N39.0 - Urinary tract infection, site not specified Coding Level of Care Code Est Pt Level 4 (78380) Diagnoses Acute cystitis with hematuria N30.01 Hematuria presence: with hematuria Urinary tract infection type: acute cystitis
== END 2023-07-28 13:22 | disposition home or self-care (01) ==
PROVIDERS: PCP Internal Medicine; Visit Provider Physician Assistant Medical
DX: N30.01 Acute cystitis with hematuria (principal)
CPT/HCPCS: 81003; 99051; 99214

== ENCOUNTER 2024-05-12 15:09 | Outpatient (AMB) | payer OTHER, SELFPAY ==
--- NOTE | 2024-05-12 16:03 | MHC.PC.OV ---
Vital Signs 05/12/24 16:06 Height 5 ft 1.1 in Weight 171 lb BMI 32.2 BP 92/60 Blood Pressure Location Rt brachial Position Sitting Pulse 62 Pulse Source Pulse Oximeter Pulse Oximetry (%) 97 Oxygen Delivery Method Room Air Intake Visit Reasons: est care/ Intake Note: New patient visit Allergies amoxicillin [Augmentin] Adverse Reaction (Unknown, Verified 07/28/23 12:15) hives Tobacco use date assessed: 05/12/24 Dental Screening Dental Screen Date: 05/12/24 Did you have a dental visit in the last 12 months?: Yes Did you have a dental problem in the last 6 months where you did not have access to dental care?: No Was dental information given to patient?: Patient has dentist HPI HPI Comments History of Present Illness Details 28 year old female with a past medical history of recent miscarriage, anxiety/depression [place] [facility] [place] Recently had a miscarriage. 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 Doing 3 -12s a weekly Anxiety and depressive symptoms stable off medications She notes a history of lightheadedness. Feels like her heart is racing at times. Frequent ?PVCs on exam today. EKG was done and normal ROS CONSTITUTIONAL: Denies weight loss, fever and chills. HEENT: Denies changes in vision and hearing. RESPIRATORY: Denies SOB and cough. CV: Denies palpitations and CP GI: Denies abdominal pain, nausea, vomiting and diarrhea. : Denies dysuria and urinary frequency. MSK: Denies new myalgia and joint pain. SKIN: Denies rash and pruritus. NEUROLOGICAL: Denies headache PSYCHIATRIC: Denies recent changes in mood. PHYSICAL EXAM: GENERAL: Alert and oriented x 3. NAD EYES: EOMI. Anicteric. HENT: Moist mucous membranes. No scleral icterus. No cervical lymphadenopathy. LUNGS: Clear to auscultation bilaterally. CARDIOVASCULAR: Tachycardic with missed or early beats. ABDOMEN: Soft, non-tender +bs EXTREMITIES: No edema. Non-tender. SKIN: No rashes or lesions. Warm. NEUROLOGIC: No focal neurological deficits. CN II-XII grossly intact PSYCHIATRIC: Cooperative. Appropriate mood and affect [facility] Medical History History of inguinal hernia History of depression Hx of anxiety disorder Hx of seasonal allergies Surgical History History of wisdom tooth extraction Hx of knee surgery Hx of hiatal hernia Family History Mother History of breast cancer Maternal Grandmother History of breast cancer Social History Housing: House Alcohol intake: current Alcohol intake frequency: a few times a week Alcohol type: wine Patient Tobacco Use Status: Never used Tobacco e-Cigarette/Vaping Use: Never Used Second Hand Smoke Exposure: No service: No Current occupational status: employed 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 Current occupational exposures/hazards: No Cognitive needs: No Hearing needs: No Vision needs: Yes Female Reproductive History Menstrual Age of Menarche: 10 Questionnaire PHQ-9 Over the last 2 weeks, how often have you been bothered by any of the following problems? 1. Little interest or pleasure in doing things: not at all 2. Feeling down, depressed, or hopeless: not at all 3. Trouble falling or staying asleep, or sleeping too much: not at all 4. Feeling tired or having little energy: not at all 5. Poor appetite or overeating: not at all 6. Feeling bad about yourself - or that you are a failure or have let yourself or your family down: not at all 7. Trouble concentrating on things, such as reading the newspaper or watching television: not at all 8. Moving or speaking so slowly that other people could have noticed. Or the opposite - being so fidgety or restless that you have been moving around a lot more than usual: not at all 9. Thoughts that you would be better off or of hurting yourself in some way: not at all Total score: 0 Depression Screening Interpretation: Negative Depression Screening Done: Yes [id number] - PHQ-9 Billing: Yes Source: Developed by Drs. Kody Mckenzie, Nola Presley, Gucci Ohara and colleagues, with an educational kelsi from [employer]. Thrive Questionnaire Date Thrive assessed: 05/05/24 I am a: Patient What is your living situation today?: I have a steady place to live Within the past 12 months, did the food you bought not last and you didn't have the money to get more?: Never true Within the past 12 months, did you worry whether your food would run out before you got money to buy more?: Never true Do you have trouble paying for medicines?: No Do you have trouble getting transportation to medical appointments?: No Do you have trouble paying your heating and electricity bill?: No Do you have trouble taking care of your child, family member or friend?: No Do you have trouble with day-to-day activities such as bathing, preparing meals, shopping, managing finances, etc.?: No Are you currently unemployed and looking for a job?: No Are you interested in more education?: No Please select the resources that you would like help with: None Currently or been in a relationship where the following occur: I choose not to answer THRIVE Score: 0 AUDIT C Alcohol Use Questionnaire (AUDIT-C) 3. How often do you have six or more drinks on one occasion?: Never Total Score: 0 CRISTEL-7 AMB Questionnaire CRISTEL-7 Date CRISTEL - 7 assessed: 01/05/22 Feeling nervous, anxious, or on edge: 1 = Several days Not being able to stop or control worryin = Not at all Worrying too much about different things: 1 = Several days Trouble relaxin = Not at all Being so restless that it is hard to sit still: 0 = Not at all Becoming easily annoyed or irritable: 1 = Several days Feeling afraid as if something awful might happen: 0 = Not at all Total CRISTEL-7 score (0-4 normal; 5-9 mild; 10-14 moderate; 15-21 severe): 3 Source: Developed by Drs. Kody Mckenzie, Nola Presley, Gucci Ohara and colleagues, with an educational kelsi from [email or web address]. Physical exam (Primary Care) Vital Signs: Last Vital Signs Pulse 62 05/12/24 16:06 BP 92/60 05/12/24 16:06 Pulse Ox 97 05/12/24 16:06 Oxygen Delivery Method Room Air 05/12/24 16:06 BMI result Body Mass Index 32.2 Tobacco/Smoking Status: Tobacco use Status Tobacco use date assessed 05/12/24 05/12/24 16:09 Patient Tobacco Use Status Never used Tobacco 05/12/24 16:09 e-Cigarette/Vaping Use Never Used 05/12/24 16:09 PHQ-9: PHQ-9 Score PHQ-9: Total score 0 05/12/24 16:18 Depression Screening Interpretation: Negative Thrive Assessment: Date of Thrive Assessment Date Thrive assessed 05/05/24 05/12/24 16:09 Currently or been in a relationship where the following occur: I choose not to answer Coding Level of Care Code Est Pt Level 4 (06985) Complex EM visit Add On G2211 Diagnoses Encounter to establish care Z76.89 Cardiac arrhythmia, unspecified cardiac arrhythmia type I49.9 Arrhythmia type: unspecified cardiac arrhythmia Additional Codes PHQ-9 - 43962 - PHQ-9 Billing: Yes ([id number]) Assessment & Plan Assessment & Plan (1) Encounter to establish care: Code(s): Z76.89 - Persons encountering health services in other specified circumstances Category: Medical Plan: past medical, surgical, social and family history reviewed (2) Arrhythmia: Code(s): I49.9 - Cardiac arrhythmia, unspecified Category: Medical Qualifiers: Arrhythmia type: unspecified cardiac arrhythmia Qualified Code(s): I49.9 - Cardiac arrhythmia, unspecified Plan: referral to cardiology Holter ordered Orders: Orders Complete Blood Count Auto Diff 05/14/24 Z13.0 - Encounter for screening for diseases of the blood and blood-forming organs and certain disorders involving the immune mechanism, Z13.228 - Encounter for screening for other metabolic disorders, R73.09 - Other abnormal glucose, Z13.220 - Encounter for screening for lipoid disorders TSH reflex Free T4 05/14/24 Z13.0 - Encounter for screening for diseases of the blood and blood-forming organs and certain disorders involving the immune mechanism, Z13.228 - Encounter for screening for other metabolic disorders, R73.09 - Other abnormal glucose, Z13.220 - Encounter for screening for lipoid disorders IRON PROFILE 05/14/24 Z13.0 - Encounter for screening for diseases of the blood and blood-forming organs and certain disorders involving the immune mechanism, Z13.228 - Encounter for screening for other metabolic disorders, R73.09 - Other abnormal glucose, Z13.220 - Encounter for screening for lipoid disorders SOCO Reflex Titer and Pattern 05/14/24 Z13.0 - Encounter for screening for diseases of the blood and blood-forming organs and certain disorders involving the immune mechanism, Z13.228 - Encounter for screening for other metabolic disorders, R73.09 - Other abnormal glucose, Z13.220 - Encounter for screening for lipoid disorders Hemoglobin A1c 05/14/24 Z13.0 - Encounter for screening for diseases of the blood and blood-forming organs and certain disorders involving the immune mechanism, Z13.228 - Encounter for screening for other metabolic disorders, R73.09 - Other abnormal glucose, Z13.220 - Encounter for screening for lipoid disorders Vitamin B12 and Folate 05/14/24 R53.82 - Chronic fatigue, unspecified Lyme IgG/IgM w/reflex to WB 05/14/24 R53.82 - Chronic fatigue, unspecified UA CC w/rflx Micro + Cult 05/14/24 Z13.228 - Encounter for screening for other metabolic disorders AMB EKG-In Office 05/12/24 I49.9 - Cardiac arrhythmia, unspecified Comprehensive Met. Panel 05/14/24 Z13.0 - Encounter for screening for diseases of the blood and blood-forming organs and certain disorders involving the immune mechanism, Z13.228 - Encounter for screening for other metabolic disorders, R73.09 - Other abnormal glucose, Z13.220 - Encounter for screening for lipoid disorders Lipid Panel 05/14/24 Z13.0 - Encounter for screening for diseases of the blood and blood-forming organs and certain disorders involving the immune mechanism, Z13.228 - Encounter for screening for other metabolic disorders, R73.09 - Other abnormal glucose, Z13.220 - Encounter for screening for lipoid disorders
[2024-05-12 16:06] VITALS: BP 92/60; PULSE 62; O2SAT 97; BMI 32.2
== END 2024-05-12 16:44 | disposition home or self-care (01) ==
PROVIDERS: PCP Internal Medicine; Visit Provider Internal Medicine
DX: Z76.89 Persons encountering health services in other specified circumstances (principal); I49.9 Cardiac arrhythmia, unspecified

== ENCOUNTER → 2024-05-12 15:09 | Outpatient (BNVA) | payer OTHER, SELFPAY | PROVIDERS: PCP Internal Medicine; Visit Provider Internal Medicine | DX: Z76.89 Persons encountering health services in other specified circumstances (principal); I49.9 Cardiac arrhythmia, unspecified; Z87.59 Personal history of other complications of pregnancy, childbirth and the puerperium | CPT/HCPCS: 96127 ==

== ENCOUNTER 2024-05-14 12:06 | Outpatient (REF) | payer OTHER, SELFPAY ==
[2024-05-14 12:21] LABS: MANUAL DIFF FLAG NO
[2024-05-14 13:11] LABS: Basophils Percent Auto 0.6 % (0-2); Eosinophils Absolute Auto 0.1 X10*3/uL (0.0-0.4); Hematocrit 39.1 % (37.0-47.0); Hemoglobin 13.4 g/dl (12.0-16.0); Imm Gran Abs Auto 0.03 X10*3/uL (0.00-0.03); Imm Gran Pct Auto 0.5 % (0.0-0.4); Lymphocytes Absolute Auto 1.6 X10*3/uL (1.2-4.9); Lymphocytes Percent Auto 24.6 % (20-40); Mean Corpuscular HGB Conc 34.3 g/dl (31.0-35.0); Mean Corpuscular Hemoglobin 31.1 pg (27.0-33.0); Mean Corpuscular Volume 90.7 fL (80.0-98.0); Mean Platelet Volume 9.8 fL (9.4-12.3); Monocytes Absolute Auto 0.7 X10*3/uL (0.1-1.2); Monocytes Percent Auto 10.9 % (2-11); Neutrophils Absolute Auto 3.9 x10*3/uL (2.0-8.3); Neutrophils Percent Auto 61.4 % (45-73); Platelet Count 221 X10*3/uL (160-400); Red Blood Count 4.31 X10*6/uL (4.20-5.50); Red Cell Distribution Width 12.1 % (11.0-16.0); White Blood Count 6.4 X10*3/uL (4.8-10.8)
[2024-05-14 13:19] LABS: Estimated Average Glucose 94 mg/dL; Hemoglobin A1C 101.6264 umol/L; Hemoglobin A1c % 4.9 % (<6.0); Total Hemoglobin (HGBA1C) 3332.4944 umol/L
[2024-05-14 13:32] LABS: Appearance Urine Clear; Color Urine Yellow; Glucose Urine UA Negative (Negative); Leukocyte Esterase Urine Negative (Negative); Nitrite Urine Negative (Negative); PH 7.5 (5.0-9.0); Urine Blood Negative (Negative); Urine Ketones Trace mg/dL (Negative); Urine Protein Negative (Neg-Trace)
[2024-05-14 14:01] LABS: Alanine Aminotransferase 20 U/L (0-31); Albumin Level 4.3 g/dL (3.5-5.0); Alkaline Phosphatase 72 U/L (39-117); Anion Gap 16 (12-20); Aspartate Amino Transferase 30 U/L (5-31); Bilirubin Total 0.7 mg/dL (0.0-1.0); Blood Urea Nitrogen 12 mg/dL (9-16); Calcium 9.2 mg/dL (8.4-10.2); Carbon Dioxide 25 mmol/L (22-29); Chloride 104 mmol/L (96-108); Cholesterol 164 mg/dL (<200); Estimated Glomerular Filt Rate > 60; Glucose Random 83 mg/dL (60-115); HDL Cholesterol 58 mg/dL (>40); Iron 126 mcg/dL (30-160); LDL Cholesterol Calculated 97 mg/dL (<100); Percent Iron Saturation 52 % (15-50); Potassium 4.1 mmol/L (3.3-5.1); Sodium 141 mmol/L (135-145); Total Iron Binding Capacity 243 mcg/dL (228-428); Triglycerides 49 mg/dL (<150); Unsaturated Iron Binding 117 ug/dL
[2024-05-14 14:06] LABS: TSH reflex Free T4 2.71 uIU/mL (0.32-4.0)
[2024-05-14 14:17] LABS: Folate 17.2 ng/mL (> or = 4.0); Vitamin B12 975 pg/mL (200-900)
[2024-05-16 13:48] LABS: Anti Nuclear Antibody Screen NEGATIVE (NEGATIVE)
[2024-05-16 18:43] LABS: Lyme Abs Screen <0.90 index
== END 2024-05-14 12:07 | disposition home or self-care (01) ==
LOC: HO.LAB 12:06
PROVIDERS: PCP Internal Medicine; Visit Provider Internal Medicine
DX: Z13.220 Encounter for screening for lipoid disorders (principal); Z13.0 Encounter for screening for diseases of the blood and blood-forming organs and certain disorders involving the immune mechanism; R73.09 Other abnormal glucose; Z13.228 Encounter for screening for other metabolic disorders; R53.82 Chronic fatigue, unspecified
CPT/HCPCS: 36415; 80053; 80061; 81003; 82607; 82746; 83036; 83540; 84443; 85025; 86038; 86617; 86618

== ENCOUNTER → 2024-06-06 08:11 | Outpatient (REF) | payer OTHER, SELFPAY | LOC: HO.CARD 08:11 | PROVIDERS: PCP Internal Medicine; Visit Provider Internal Medicine | DX: I49.9 Cardiac arrhythmia, unspecified (principal); R00.2 Palpitations | CPT/HCPCS: 93225 ==

== ENCOUNTER → 2024-06-06 08:14 | Outpatient (BNV) | payer OTHER, SELFPAY | PROVIDERS: PCP Internal Medicine; Visit Provider Internal Medicine Cardiovascular Disease | DX: I47.10 Supraventricular tachycardia, unspecified (principal) | CPT/HCPCS: 93227 ==

== ENCOUNTER → 2024-06-09 15:20 | Outpatient (BNVA) | payer OTHER, SELFPAY | PROVIDERS: PCP Internal Medicine ==

== ENCOUNTER 2024-10-29 09:50 | Outpatient (AMB) | payer OTHER, SELFPAY ==
--- NOTE | 2024-10-29 09:54 | MHC.OFFVIS ---
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/ Intake Note: New patient dx palpitations c/o high heart rate and palpitations on and off Service Provider Required: No Allergies amoxicillin [Augmentin] Adverse Reaction (Unknown, Verified 07/28/23 12:15) hives Medication List - Last Reconciled 10/29/24 by Mark Cali MD cholecalciferol (vitamin D3) 50 mcg PO DAILY diphenhydramine HCl (Allergy Relief (diphenhydramine)) 25 mg PO BEDTIME magnesium 200 mg PO DAILY PNV #[id number] acid-[id number] 30 mg iron-10 mg iron-1 mg caps PO ubidecarenone-omega 3-vit E 25-150-200 mg-mg-unit (Co K-42-Bucaese E-Fish Oil) 1 cap PO DAILY Patient : Yes Referred by: Jan 30 HPI Comments Details: Shaye is here for cardiac consultation. She is currently 27 weeks . 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 She also got sweaty during those times. Sometimes, heart rates erratically peak into the 130s even when she is sitting and doing nothing. After getting , she believes the other symptoms are somewhat improved. Could be related to increased blood volume. Otherwise, no previous cardiac history. No activity limitations. 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 There is no obvious history for inherited arrhythmias. COUNT INCLUDES [facility] Medical History History of inguinal hernia History of depression Hx of anxiety disorder Hx of seasonal allergies Surgical History History of wisdom tooth extraction Hx of knee surgery Hx of hiatal hernia Family History Mother History of breast cancer Maternal Grandmother History of breast cancer Social History Housing: House Alcohol intake: current Alcohol intake frequency: a few times a week Alcohol type: wine Patient Tobacco Use Status: Never used Tobacco e-Cigarette/Vaping Use: Never Used Second Hand Smoke Exposure: No service: No Current occupational status: employed Current occupation: [employer] [place] Current occupational exposures/hazards: No Cognitive needs: No Hearing needs: No Vision needs: Yes Female Reproductive History Menstrual Age of Menarche: 10 Review of Systems Const Denies chills, Denies daytime sleepiness, Denies fatigue, Denies fever(s), Denies frequent falls, Denies poor appetite, Denies snoring, Denies stops breathing during sleep, Denies weakness, Denies weight gain and Denies weight loss Eyes Denies loss of vision ENT Denies dizziness and Denies hearing loss Card Denies chest pain, Denies claudication, Denies leg edema, Denies lightheadedness, Reports palpitations, Denies dyspnea, Denies dyspnea on exertion and Denies orthopnea Resp Denies cough, Denies excessive phlegm production, Denies dyspnea, Denies dyspnea on exertion, Denies snoring and Denies wheezing GI Denies abdominal pain, Denies hematochezia, Denies change in bowel habits, Denies nausea and Denies vomiting Denies urinary frequency and Denies dysuria Musc Denies arthralgias, Denies muscle weakness, Denies numbness and Denies other (frequent falls) Skin/Breast Denies nail changes and Denies rash Neuro Denies Abnormal speech present, Denies dizziness, Denies frequent falls, Denies loss of vision, Denies memory loss, Denies numbness and Denies weakness Psych Denies depression and Denies memory loss Endo Denies fatigue and Reports palpitations Charlie/Lymph Reports easy bruising and Reports other (anemia) Aller/Immun Denies wheezing Physical Exam Vital Signs: Last Vital Signs Pulse 101 H 10/29/24 09:55 BP 120/78 10/29/24 09:55 BMI result Body Mass Index 31.1 Const General: comfortable and no acute distress Orientation/consciousness: patient oriented x3 HEENT Other: Unremarkable Head: Yes normal to inspection Neck Neck: Yes normal visual inspection Chest Chest palpation & inspection: normal inspection of the chest Resp Auscultation: clear to auscultation bilaterally Cardio Palpation: normal PMI Heart sounds: S1 normal heart sound present, S2 normal heart sound present, no gallops, no murmurs and no rubs GI Palpation (GI): Soft to palpation Back/Spine/Pelvis Other: unremarkable Skin General skin exam: no rashes or lesions noted Neuro General: patient oriented x3 Speech: No Abnormal speech present Extrem General: Yes normal to inspection Psych Mental Status: mental status grossly normal Office Procedures EKG Details: EKG with sinus tachycardia at 101/Min; no significant ischemic changes or other abnormalities; [place] [address]-Zpxcgbxyqvdtrjifo, Complete Assessment & Plan Assessment & Plan (1) Dizziness: Code(s): R42 - Dizziness and giddiness Category: Medical Plan: Symptoms suggestive of orthostatic hypotension. Improvement with could be related to increased blood volume. At this point and especially while , can just keep herself hydrated but otherwise no specific recommendations. We need to see how she does post . (2) Palpitations: Code(s): R00.2 - Palpitations Category: Medical Plan: Not clear if she has sinus tachycardia or any atrial arrhythmias. We can do a 2 week monitor to reassess. Previously unremarkable Holters but they were of shorter duration. Orders: Orders CA echo transthoracic complete Today I49.9 - Cardiac arrhythmia, unspecified, Z34.90 - Encounter for supervision of normal , unspecified, unspecified trimester ECG 14 day holter monitor Today I49.9 - Cardiac arrhythmia, unspecified, R00.2 - Palpitations Coding Level of Care Code New Pt Level 4 (06918) Diagnoses Dizziness R42 Palpitations R00.2 CPT Codes EKG - CPT: 58380-Elrfoqmupbwvsrkei, Complete ([id number])
[2024-10-29 09:55] VITALS: BP 120/78; PULSE 101; BMI 31.1
== END 2024-10-29 10:29 | disposition home or self-care (01) ==
PROVIDERS: PCP Internal Medicine; Visit Provider Internal Medicine
DX: R42 Dizziness and giddiness (principal); R00.2 Palpitations
CPT/HCPCS: 93010; 99204

== ENCOUNTER → 2024-10-29 09:50 | Outpatient (BNVA) | payer OTHER, SELFPAY | PROVIDERS: PCP Internal Medicine; Visit Provider Internal Medicine | DX: O26.892 Other specified pregnancy related conditions, second trimester (principal); R42 Dizziness and giddiness; R00.2 Palpitations; Z3A.27 27 weeks gestation of pregnancy | CPT/HCPCS: 93005 ==

== ENCOUNTER → 2024-12-31 12:52 | Outpatient (REF) | payer OTHER, SELFPAY ==
--- NOTE | 2024-12-31 12:54 | HM_ITS ---
* Total monitoring time 18 days. * Underlying rhythm is sinus with an average rate of 93/Min. * Rare supraventricular ectopy. * Rare ventricular ectopy. * No significant pauses or high-grade AV blocks. * Palpitations, chest discomfort, shortness of breath in patient diary correlates with sinus rhythm and mild sinus tachycardia. MTDD
== END ==
LOC: HO.CARD 12:52
PROVIDERS: PCP Internal Medicine; Visit Provider Internal Medicine
DX: R00.2 Palpitations (principal); I49.9 Cardiac arrhythmia, unspecified
CPT/HCPCS: 93246

== ENCOUNTER → 2024-12-31 12:54 | Outpatient (BNV) | payer OTHER, SELFPAY | PROVIDERS: PCP Internal Medicine; Visit Provider Internal Medicine | DX: I47.10 Supraventricular tachycardia, unspecified (principal); I49.3 Ventricular premature depolarization | CPT/HCPCS: 93248 ==

== ENCOUNTER → 2025-02-20 08:56 | Outpatient (REF) | payer OTHER, SELFPAY ==
--- NOTE | 2025-02-20 08:58 | CA_ITS ---
Transthoracic Echocardiogram Patient (Last, First, Middle): Shaye Bates, Gender: F Date of : 1995 Age: 29 Procedure Date: 02/20/2025 Procedure Type: Transthoracic Echocardiogram Location: OP Height: 172.72 cm Weight: 74.84 kg BSA: 1.88 m2 Heart Rate: 66 bpm BP: 120 / 68 mmHg Web Content Developer: KATIANA Referring MD: Mark Cali MD Restaurant Lead: Waldemar Muhammad MD Symptoms: I49.9 - Cardiac arrhythmia, unspecified Study Quality: Adequate ECG Rhythm: Sinus Conclusions: - Essentially normal study Findings Left Ventricle Normal left ventricular size, thickness, and systolic function. The visually estimated ejection fraction is between 55-60%. Spectral Doppler is indicative of a normal filling pattern. Right Ventricle Normal right ventricular cavity size and systolic function. Atria Both atria are normal in size. Interatrial shunt cannot be excluded. Aortic Valve Normal aortic valve structure and function. There is no aortic valve stenosis. There is no aortic valve regurgitation. Mitral Valve Normal mitral valve structure and function. There is no mitral valve regurgitation. There is no mitral valve stenosis. Pulmonic Valve The pulmonic valve is likely normal. Tricuspid Valve Likely normal tricuspid valve structure and function. There is trace tricuspid valve regurgitation. The right ventricular systolic pressure is normal. The right ventricular systolic pressure is 18 mmHg. Normal right atrial pressure. There is no evidence of pulmonary hypertension. Great Vessels All visible segments of the aorta are normal in size. The pulmonary artery was not well visualized. There is no dilatation of the ascending aorta measuring 2.70 cm. Venous The inferior vena cava is normal in size and collapses greater than 50% with inspiration. Pericardium/Pleural There is no evidence of pericardial effusion. Prior Study Comparison No prior study available for comparison. Measurements 2D Linear Measurements IVSd: 0.77 0.6-0.9/0.6-1.0 cm LVIDd: 5.34 3.9-5.3/4.2-5.9 cm LVIDd Index: 2.84 2.4-3.2/2.2-3.1 cm/m2 LVIDs: 3.84 2.0-3.6 cm LVPWd: 0.56 0.7-1.1 cm LA Diam: 4.10 2.7-3.8/3.0-4.0 cm LAIDs Index: 2.18 1.5-2.3 cm/m2 LV Mass: 150.52 67-162/88-224 g LV Mass Index: 80.07 43-95/49-115 g/m2 LVOT Diam: 2.20 3.0+(-)1.3 cm Mitral Valve MV Pk E: 0.50 MV PK A: 0.43 MV Decel Time: 234.00 E/A: 1.20 E'Lateral: 13.80 E'Medial: 9.57 E/E' Med: 5.20 E/E' Lat: 3.60 PHT: 69.00 MVA PHT: 3.19 Decel Steuben: 2.12 Aortic Valve AoV Pk Alex: 0.89 AoV Pk Grad: 3.00 TRISTA: 3.00 LVOT LVOT Pk Alex: 0.70 LVOT Mn Alex: 0.51 LVOT VTI: 0.16 LVOT Pk Grad: 2.00 LVOT Mn Grad: 1.00 LVOT Diam: 2.20 LVOT Area: 3.80 Diastolic Function MV Pk E: 0.50 MV Pk A: 0.43 E/A: 1.20 E'Medial: 9.57 E/E' Med: 5.20 E' Laterial: 13.80 E/E' Lat: 3.60 Right Ventricle TAPSE (mm): 24.30 TVS' Alex: 10.80 Tricuspid Valve TR Pk Alex: 1.91 TR Pk Grad: 15.00 RA Press: 3.00 RVSP: 18.00 Great Vessels Aorta Sinus of Valsalva: 2.90 2.0-3.5 cm Ao Asc: 2.70 2.1-3.4 cm Pulmonary Valve PV Pk Alex: 0.71 Peak PV Grad: 2.00 Updated in Other Vendor System with Status of Final Waldemar Muhammad MD electronically signed on 02/20/2025 1:07:35 PM with status of Final
--- OUTSIDE RECORDS SUMMARY | 2025-02-20 09:32 | XMS_ITS | Clinical Summary ---
Author Organization [facility] Address [address] [facility] [address] [place] [address] Phone Care Team Providers Care Director Of Donor Relations Name Role Phone Pcp, Unknown Primary Care Provider Unavailabl e Social History Tobacco Use Types Packs/Day Years Used Date Smoking Tobacco: Never Assessed Comments Unknown Sex and Gender Information Value Date Recorded Sex Assigned at Not on file Legal Sex Female 12:20 PM EST Gender Identity Not on file Sexual Orientation Not on file Plan of Treatment Not on file Medical Devices Not on file Insurance [employer] Member Subscriber Plan / Payer (Ef fective 2020-Present) Name:Shaye Bates Relation to Subscriber:Self Name:Shaye Bates Payer ID:[id number] (NAIC) Type:PPO Address: [address] [employer] Member Subscriber Plan / Payer (Ef fective 2020-Present) Name:Shaye Bates Relation to Subscriber:Self Name:Shaye Bates Payer ID:[id number] (NA) Type:PPO Address: [address] [employer] [place] [address] [employer] Care Teams Director Of Donor Relations Relationship Specialty Start Date End Date Pcp, Unknown PCP - General 06/27/23 Additional Source Comments The information contained in this document represents components of the legal health record. It is not the complete legal health record.[facility]
== END ==
LOC: HO.CARD 08:56
PROVIDERS: PCP Internal Medicine; Visit Provider Internal Medicine
DX: O26.899 Other specified pregnancy related conditions, unspecified trimester (principal); I49.9 Cardiac arrhythmia, unspecified
CPT/HCPCS: 93306

== ENCOUNTER → 2025-02-20 08:58 | Outpatient (BNV) | payer OTHER, SELFPAY | PROVIDERS: PCP Internal Medicine; Visit Provider Internal Medicine Cardiovascular Disease | DX: I49.9 Cardiac arrhythmia, unspecified (principal) | CPT/HCPCS: 93306 ==

== ENCOUNTER 2025-03-09 08:55 | Outpatient (AMB) | payer OTHER, SELFPAY ==
[2025-03-09 09:00] VITALS: BP 116/66; PULSE 86; BMI 31.2
--- NOTE | 2025-03-09 09:00 | MHC.OFFVIS ---
Vital Signs 03/09/25 09:00 Height 5 ft 1 in Weight 165 lb 5.547 oz BMI 31.2 BP 116/66 Blood Pressure Location Lt brachial Position Sitting Pulse 86 Pulse Source Pulse Oximeter Intake Visit Reasons: Follow up Testing Allergies amoxicillin (Augmentin) Adverse Reaction (Unknown, Verified 07/28/23 12:15) hives Medication List - Last Reconciled 03/09/25 by Mark Cali MD cholecalciferol (vitamin D3) 50 mcg PO DAILY diphenhydramine HCl (Allergy Relief (diphenhydramine)) 25 mg PO BEDTIME magnesium 200 mg PO DAILY PNV [id number]-hjazs ralm-rphst-4 30 mg iron-10 mg iron-1 mg caps PO ubidecarenone-omega 3-vit E 25-150-200 mg-mg-unit (Co K-46-Fhzhxqw E-Fish Oil) 1 cap PO DAILY HPI Comments Details: Shaye returns for follow-up. She was seen few months back when she was . At that time, she had reported that she was having symptoms of dizziness when she got out of bed as well as erratic heart rates into the 130s when doing nothing. She underwent an echocardiogram and Holter monitor which were essentially unremarkable. She has delivered a healthy baby who is doing well. Otherwise, she still feels the erratic heart rates but does not have any other symptoms like dizziness. Otherwise, unlimited exercise tolerance without any limitations. No other cardiac history. REPLACED BY [facility] Medical History History of inguinal hernia History of depression Hx of anxiety disorder Hx of seasonal allergies Surgical History History of wisdom tooth extraction Hx of knee surgery Hx of hiatal hernia Family History Mother History of breast cancer Maternal Grandmother History of breast cancer Social History Housing: House Alcohol intake: current Alcohol intake frequency: a few times a week Alcohol type: wine Patient Tobacco Use Status: Never used Tobacco e-Cigarette/Vaping Use: Never Used Second Hand Smoke Exposure: No service: No Current occupational status: employed Current occupation: rt handed/[employer] [place] Current occupational exposures/hazards: No Cognitive needs: No Hearing needs: No Vision needs: Yes Female Reproductive History Menstrual Age of Menarche: 10 Review of Systems Const Denies weakness ENT Denies dizziness Card Denies chest pain, Denies chest pain with activity, Denies syncope, Denies rapid heart rate, Denies pedal edema, Denies edema, Denies leg edema, Denies lightheadedness, Denies palpitations, Denies dyspnea, Denies dyspnea on exertion and Denies orthopnea Resp Denies cough, Denies dyspnea and Denies dyspnea on exertion GI Denies hematochezia and Denies change in stool character Musc Denies abnormal gait, Denies muscle cramps, Denies muscle weakness, Denies numbness, Denies radiating pain into limb and Denies tingling Neuro Denies abnormal gait, Denies dizziness, Denies syncope, Denies numbness, Denies tingling and Denies weakness Endo Denies palpitations Physical Exam Vital Signs: Last Vital Signs Pulse 86 03/09/25 09:00 BP 116/66 03/09/25 09:00 BMI result Body Mass Index 31.2 Const General: comfortable and no acute distress Orientation/consciousness: patient oriented x3 HEENT Other: Unremarkable Head: Yes normal to inspection Neck Neck: Yes normal visual inspection Chest Chest palpation & inspection: normal inspection of the chest Resp Auscultation: clear to auscultation bilaterally Cardio Palpation: normal PMI Heart sounds: S1 normal heart sound present, S2 normal heart sound present, no gallops, no murmurs and no rubs GI Palpation (GI): Soft to palpation Back/Spine/Pelvis Other: unremarkable Skin General skin exam: no rashes or lesions noted Neuro General: patient oriented x3 Extrem General: Yes normal to inspection Psych Mental Status: mental status grossly normal Assessment & Plan Assessment & Plan (1) Dizziness: Code(s): R42 - Dizziness and giddiness Category: Medical Plan: Seems to have resolved. Could be orthostatic hypotension. She has had some blood pressures in the 90s in 2023 but higher now. Encourage to liberalize salt and fluid intake. If she plans to lose weight, lose gradually. (2) Palpitations: Code(s): R00.2 - Palpitations Category: Medical Plan: In the Holter monitor, rare supraventricular and ventricular ectopy. Many of her symptoms including palpitations, chest discomfort, shortness of breath correlate with sinus rhythm and mild sinus tachycardia. No specific implications. We reviewed the strips together. Mainly reassurance. Avoid medications like beta-blockers. Plan Discussion Notes I discussed with the patient that her episodes of sinus tachycardia do not currently warrant treatment with beta-blockers unless they become more frequent and disruptive. We reviewed her palpitations, which, despite being symptomatic, showed normal heart rate readings, suggesting a benign condition. I advised her to maintain her blood pressure by consuming salty foods, given her baseline hypotension. Patient was informed and verbally consented to the use of an ambient scribe for clinic note documentation during this visit. Patient Instructions: - Monitor heart rate and note any significant changes or symptoms. - Consume salty foods to help maintain blood pressure levels. - Follow up if symptoms worsen or become more frequent. Coding Level of Care Code Est Pt Level 3 (00814) Diagnoses Dizziness R42 Palpitations R00.2
--- OUTSIDE RECORDS SUMMARY | 2025-03-09 10:22 | XMS_ITS | Clinical Summary ---
Author Organization [facility] Address [address] [facility] [address] [place] [id number] Phone Care Team Providers Care Music Specialist Name Role Phone Pcp, Unknown Primary Care [...] file Medical Devices Not on file Insurance [employer] Member Subscriber Plan / Payer (Ef fective 2020-Present) Name:Shaye Bates Relation to Subscriber:Self Name:Shaye Bates Payer ID:[id number] (NAIC) Type:PPO Address: [address] [employer] Member Subscriber Plan / Payer (Ef fective 2020-Present) Name:Shaye Bates Relation to Subscriber:Self Name:Shaye Bates Payer ID:[id number] (NA) Type:PPO Address: [address] [employer] [address] [employer]EFITS [employer] Care Teams Music Specialist Relationship Specialty Start Date End Date Pcp, Unknown PCP - General 06/27/23 Additional Source Comments The information contained in this document represents components of the legal health record. It is not the complete legal health record.[facility]
== END 2025-03-09 09:28 | disposition home or self-care (01) ==
PROVIDERS: PCP Internal Medicine; Visit Provider Internal Medicine
DX: R42 Dizziness and giddiness (principal); R00.2 Palpitations
CPT/HCPCS: 99213

== ENCOUNTER 2025-05-19 08:31 | Outpatient (AMB) | payer OTHER, SELFPAY ==
--- OUTSIDE RECORDS SUMMARY | 2025-05-13 23:59 | XMS_ITS | Continuity of Care Document ---
Author Organization [facility] ter Address [address] [place] [address]- Care Team Providers Care Commissioning Specialist Name Role Phone Shaye Guallpa MD Primary Care Physician [phone] [id number] Date[facility] - 05/13/[address] [address]- Attending Physician: Lui Bojorquez CNM Admitting Physician: Lui Bojorquez CNM Referring Physician: Lui Bojorquez CNM Encounter Type: Pre-Outpt Allergies, Adverse Reactions, Alerts Substance Criticality Severity Reaction Reaction Severity Status Augmentin hives Active Immunizations Given and Recorded Vaccine Date Status Refusal Reason tetanus/diphtheria/pertussis, acel(Tdap) 11/07/24 Given Influenza Virus Vaccine (oldterm) 02/17/20 Recorde d Medications Claritin 10 mg oral tablet 10 mg, 1, tablet, By Mouth, Daily, # 30 tablet, Refills 0, Maintenance, 12/02/19 11:48:00 AM EDT Start Date: 12/02/19 Status: Ordered Medication Dispense Status: Completed Quantity: 30.0 Unit: tablet Total Allowed Fills: 1 Fills Dispensed: 0 docusate sodium 100 mg oral capsule 100 mg, 1, capsule, By Mouth, 2 times a day, Refills 0, Maintenance, 07/30/24 10:24:00 AM EST, Partial fill upon patient request if the prescription is for a schedule II opioid drug. Start Date: 07/30/24 Status: Ordered Medication Dispense Status: Completed Total Allowed Fills: 1 Fills Dispensed: 0 famotidine 20 mg oral tablet 1, tablet, By Mouth, Daily at bedtime, # 90 tablet, Refills 1, Maintenance, 03/26/25 9:05:00 AM EDT,Route to Pharmacy Electronically, [id number], 173, cm, 02/09/25 11:05:00 EDT, Height, 83.8, kg, 01/12/25 20:04:00 EDT, Dry Weight Start Date: 03/26/25 Status: Ordered Medication Dispense Status: Completed Quantity: 90.0 Unit: tablet Total Allowed Fills: 1 Fills Dispensed: 0 Fish Oil By Mouth, 0 Refills, Maintenance, 01/30/25 11:36:00 AM EDT, Partial fill upon patient request if theprescription is for a schedule II opioid drug. Start Date: 01/30/25 Status: Ordered Medication Dispense Status: Completed Total Allowed Fills: 1 Fills Dispensed: 0 Magnesium Citrate = 400 mg, By Mouth, 0 Refills, Maintenance, 07/30/24 10:25:00 AM EST, Partial fill upon patient request if the prescription is for a schedule II opioid drug. Start Date: 07/30/24 Status: Ordered Medication Dispense Status: Completed Total Allowed Fills: 1 Fills Dispensed: 0 outpatient consult outpatient consult, See Instructions, # 1 each, Refills 0, Tot. Refills 0, Maintenance, difficulty with latch, 03/12/25 11:53:00 AM EDT, Supply Start Date: 03/12/25 Status: Ordered Medication Dispense Status: Completed Quantity: 1.0 Unit: each Total Allowed Fills: 1 Fills Dispensed: 0 PNV-DHA Plus 1 capsule, By Mouth, Daily, 0 Refills, Maintenance, 07/30/24 10:26:00 AM EST, Partial fill upon patient request if the prescription is for a schedule II opioid drug. Start Date: 07/30/24 Status: Ordered Medication Dispense Status: Completed Total Allowed Fills: 1 Fills Dispensed: 0 Vitamin D3 50 mcg (2000 intl units) oral tablet, chewable 1 tablet = 50 mcg, By Mouth, Daily, # 30 each, 0 Refills, Maintenance, 07/30/24 10:24:00 AM EST, Chew Tablet, Partial fill upon patient request if the prescription is for a schedule II opioid drug. Start Date: 07/30/24 Status: Ordered Medication Dispense Status: Completed Quantity: 30.0 Unit: each Total Allowed Fills: 1 Fills Dispensed: 0 Problem List Condition Confirmation Course Effective Dates Status Health St atus Informant Anxiety about health Confirmed Active Family history of breast cancer Confirmed Active History of depression Confirmed Active History of inguinal hernia Confirmed Active History of knee problem Confirmed Active POTS (postural orthostatic tachycardia syndrome) Confirmed Active Sciatica Confirmed Active Seasonal allergies Confirmed Active Social History Social History Type Response Smoking Status Never (less than 100 in lifetime);Never; Exposure to Secondhand Smoke: No entered on: 07/30/24 Sexual Orientation Self described orien tation: ; Straight or heterosexual Sex Sex Representation Female (finding) Patient Care team information Care Team Personnel Name: Saloni GORDON, Shaye Garcia Position: Reference Physician Member Role: PCP Address: [address] [place] [address] Telecom: Care Team Related Persons Name: ABDIRASHID SCHERER Name: FLAQUITO SCHERER Name: SHAYNA MERIDA Insurance Providers Guarantor name: [employer] Health Plan Information #: 1 Payer: [employer]UE [employer] PPO Payer Identifier: [employer] Member Number: [id number] Group Number: [id number] Subscriber Identifier: [id number] Relationship to Subscriber: self Coverage Type: BLUE CROSS/BLUE SHIELD Coverage Verification Date: [employer] Telecom: [employer] Address:
--- NOTE | 2025-05-19 08:34 | A.OFFPC_ITS ---
Vital Signs 05/19/25 08:39 Height 5 ft 8 in Weight 171 lb 2 oz BMI 26.0 BP 98/74 Blood Pressure Location Lt brachial Position Sitting Respiration 14 Pulse 82 Pulse Source Pulse Oximeter Temp 97.9 F Temp Source Oral Pulse Oximetry (%) 98 Oxygen Delivery Method Room Air Intake Visit Reasons: CPE Intake Note: Physical Vp & General Counsel Required: No Allergies amoxicillin (Augmentin) Adverse Reaction (Unknown, Verified 05/19/25 08:37) hives Tobacco use date assessed: 05/19/25 Dental Screening Dental Screen Date: 05/19/25 Did you have a dental visit in the last 12 months?: Yes Did you have a dental problem in the last 6 months where you did not have access to dental care?: No Was dental information given to patient?: Patient has dentist HPI HPI Comments History of Present Illness Details 29 year old female with a past medical h istory of recent miscarriage, anxiety/depression presenting for CPE Anxiety and depressive symptoms stable off medications. . 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 She saw cardiology and had reassuring testing She had increase in thoracic and low back pain during and it has increased . She also notes increased nevi since . 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 NAD EYES: EOMI. Anicteric. HENT: Moist mucous membranes. No scleral icterus. No cervical lymphadenopathy. LUNGS: Clear to auscultation bilaterally. CARDIOVASCULAR: Tachycardic with missed or early beats. ABDOMEN: Soft, non-tender +bs EXTREMITIES: No edema. Non-tender. SKIN: No rashes or lesions. Warm. NEUROLOGIC: No focal neurological deficits. CN II-XII grossly intact PSYCHIATRIC: Cooperative. Appropriate mood and affect [facility] Medical History History of inguinal hernia History of depression Hx of anxiety disorder Hx of seasonal allergies Surgical History History of wisdom tooth extraction Hx of knee surgery Hx of hiatal hernia Family History Mother History of breast cancer Maternal Grandmother History of breast cancer Social History (Updated 05/19/25 @ 08:44 by Mechelle Bro [facility]) Housing: House Alcohol intake: current Alcohol intake frequency: a few times a week Alcohol type: wine Patient Tobacco Use Status: Never used Tobacco e-Cigarette/Vaping Use: Never Used Second Hand Smoke Exposure: No service: No Current occupational status: employed Current occupation: [employer] [employer] Current occupational exposures/hazards: No Cognitive needs: No Hearing needs: No Vision needs: Yes Female Reproductive History Menstrual Age of Menarche: 10 Questionnaire PHQ-9 Over the last 2 weeks, how often have you been bothered by any of the following problems? 1. Little interest or pleasure in doing things: not at all 2. Feeling down, depressed, or hopeless: not at all 3. Trouble falling or staying asleep, or sleeping too much: several days 4. Feeling tired or having little energy: several days 5. Poor appetite or overeating: not at all 6. Feeling bad about yourself - or that you are a failure or have let yourself or your family down: several days 7. Trouble concentrating on things, such as reading the newspaper or watching television: not at all 8. Moving or speaking so slowly that other people could have noticed. Or the opposite - being so fidgety or restless that you have been moving around a lot more than usual: not at all 9. Thoughts that you would be better off or of hurting yourself in some way: not at all Total score: 3 Depression Screening Interpretation: Negative Depression Screening Done: Yes 46247 - PHQ-9 Billing: Yes Source: Developed by Drs. Kody Mckenzie, Nola Presley, Gucci Ohara and colleagues, with an educational kelsi from [employer]. Thrive Questionnaire Date Thrive assessed: 05/19/25 I am a: Patient What is your living situation today?: I have a steady place to live Within the past 12 months, did the food you bought not last and you didn't have the money to get more?: Never true Within the past 12 months, did you worry whether your food would run out before you got money to buy more?: Never true Do you have trouble paying for medicines?: No Do you have trouble getting transportation to medical appointments?: No Do you have trouble paying your heating and electricity bill?: No Do you have trouble taking care of your child, family member or friend?: No Do you have trouble with day-to-day activities such as bathing, preparing meals, shopping, managing finances, etc.?: No Are you currently unemployed and looking for a job?: No Are you interested in more education?: No Please select the resources that you would like help with: None Currently or been in a relationship where the following occur: No concerns reported THRIVE Score: 0 AUDIT C Alcohol Use Questionnaire (AUDIT-C) 1. How often do you have a drink containing alcohol?: 2-3 times a week 2. How many drinks containing alcohol do you have on a typical day when you are drinking?: 1 or 2 3. How often do you have six or more drinks on one occasion?: Never Total Score: 3 CRISTEL-7 AMB Questionnaire CRISTEL-7 Date CRISTEL - 7 assessed: 05/19/25 Feeling nervous, anxious, or on edge: 1 = Several days Not being able to stop or control worryin = Not at all Worrying too much about different things: 1 = Several days Trouble relaxin = Not at all Being so restless that it is hard to sit still: 0 = Not at all Becoming easily annoyed or irritable: 1 = Several days Feeling afraid as if something awful might happen: 0 = Not at all Total CRISTEL-7 score (0-4 normal; 5-9 mild; 10-14 moderate; 15-21 severe): 3 Source: Developed by Drs. Kody Mckenzie, Nola Presley, Gucci Ohara and colleagues, with an educational kelsi from [employer]. CRISTEL-7 Assessment Billing CRISTEL-7 Assessment Tool: CRISTEL-7 Assessment 81674 Physical exam (Primary Care) Vital Signs: Last Vital Signs Temp 97.9 F 05/19/25 08:39 Pulse 82 05/19/25 08:39 Resp 14 05/19/25 08:39 BP 98/74 05/19/25 08:39 Pulse Ox 98 05/19/25 08:39 Oxygen Delivery Method Room Air 05/19/25 08:39 BMI result Body Mass Index 26.0 Tobacco/Smoking Status: Tobacco use Status Tobacco use date assessed 05/19/25 05/19/25 08:45 Patient Tobacco Use Status Never used Tobacco 05/19/25 08:45 e-Cigarette/Vaping Use Never Used 05/19/25 08:45 PHQ-9: PHQ-9 Score PHQ-9: Total score 3 05/19/25 08:51 Depression Screening Interpretation: Negative Thrive Assessment: Date of Thrive Assessment Date Thrive assessed 05/19/25 05/19/25 08:45 Currently or been in a relationship where the following occur: No concerns reported Coding Level of Care Code Est Pt Prev Care 18-39y(99439) Diagnoses Physical exam Z00.00 Chronic bilateral low back pain, unspecified whether sciatica present M54.50; G89.29 Back pain location: low back pain Chronicity: chronic Back pain laterality: bilateral Sciatica presence: unspecified whether sciatica present Multiple nevi D22.9 Additional Codes CRISTEL-7 Assessment Billing - CRISTEL-7 Assessment Tool: CRISTEL-7 Assessment 59236 ([id number]) PHQ-9 - 54471 - PHQ-9 Billing: Yes ([id number]) Assessment & Plan Assessment & Plan (1) Physical exam: Code(s): Z00.00 - Encounter for general adult medical examination without abnormal findings Category: Medical (2) Back pain: Code(s): M54.9 - Dorsalgia, unspecified Category: Medical Qualifiers: Back pain location: low back pain Chronicity: chronic Back pain laterality: bilateral Sciatica presence: unspecified whether sciatica present Qualified Code(s): M54.50 - Low back pain, unspecified; G89.29 - Other chronic pain (3) Multiple nevi: Code(s): D22.9 - Melanocytic nevi, unspecified Category: Medical Plan Physical exam Interval history reviewed Preventive measures for age discussed Back pain-xrays ordered Referral to dermatology Orders: Orders TSH reflex Free T4 Today I49.9 - Cardiac arrhythmia, unspecified, R00.2 - Palpitations, R73.09 - Other abnormal glucose, Z00.00 - Encounter for general adult medical examination without abnormal findings Lipid Panel Today I49.9 - Cardiac arrhythmia, unspecified, R00.2 - Palpitations, R73.09 - Other abnormal glucose, Z00.00 - Encounter for general adult medical examination without abnormal findings XR lumbar spine 2-3V Today M54.9 - Dorsalgia, unspecified Complete Blood Count Auto Diff Today I49.9 - Cardiac arrhythmia, unspecified, R00.2 - Palpitations, R73.09 - Other abnormal glucose, Z00.00 - Encounter for general adult medical examination without abnormal findings Comprehensive Met. Panel Today I49.9 - Cardiac arrhythmia, unspecified, R00.2 - Palpitations, R73.09 - Other abnormal glucose, Z00.00 - Encounter for general adult medical examination without abnormal findings Referrals Dermatology Referral D22.9 - Melanocytic nevi, unspecified
--- OUTSIDE RECORDS SUMMARY | 2025-05-19 08:37 | XMS_ITS | Clinical Summary ---
Author Organization [facility] Address [address] [place] [id number] Phone Care Team Providers Care Paid Search Specialist Name Role Phone Pcp, Unknown Primary [...] file Medical Devices Not on file Insurance [employer] Member Subscriber Plan / Payer (Ef fective 2020-Present) Name:Shaye Bates Relation to Subscriber:Self Name:Shaye Bates Payer ID:[id number] (NAIC) Type:PPO Address: [address] [employer] Member Subscriber Plan / Payer (Ef fective 2020-Present) Name:Shaye Bates Relation to Subscriber:Self Name:Shaye Bates Payer ID:[id number] (NA) Type:PPO Address: [address] [employer] [place] [address] B[employer]EFITS [employer]MINISTRAT[employer] Care Teams Paid Search Specialist Relationship Specialty Start Date End Date Pcp, Unknown PCP - General 06/27/23 Additional Source Comments The information contained in this document represents components of the legal health record. It is not the complete legal health record.[facility]
[2025-05-19 08:39] VITALS: BP 98/74; PULSE 82; RESP 14; TEMP 36.6; O2SAT 98; BMI 26.0
== END 2025-05-19 09:01 | disposition home or self-care (01) ==
LOC: HO.HMCFM 08:32
PROVIDERS: PCP Internal Medicine; Visit Provider Internal Medicine
DX: Z00.00 Encounter for general adult medical examination without abnormal findings (principal); M54.50 Low back pain, unspecified; G89.29 Other chronic pain; D22.9 Melanocytic nevi, unspecified

== ENCOUNTER 2025-05-19 08:31 | Outpatient (REF) | payer OTHER, SELFPAY ==
--- NOTE | ~2025-05-19 | XR_ITS ---
EXAMINATION: XR THORACIC SPINE CLINICAL INFORMATION: M54.9 - Dorsalgia, unspecified COMPARISON: Correlated to chest x-ray dated May 17, 2023. TECHNIQUE: AP and lateral views FINDINGS: S-shaped curvature of the thoracolumbar spine with a dextroconvex curvature apex at C5-6 level and levoconvex curvature apex at T11-T12. No acute cortical disruption or gross malalignment. No lytic or blastic lesions. XR/XR lumbar spine 2-3V IMPRESSION: Scoliosis, thoracolumbar spine. EXAMINATION: XR LUMBOSACRAL SPINE CLINICAL INFORMATION: M54.9 - Dorsalgia, unspecified COMPARISON: None available. TECHNIQUE: AP and lateral views FINDINGS: No acute cortical disruption or malalignment. No lytic or blastic lesions. Mild S-shaped curvature of the lumbar spine. There is a metallic object overlapping the L4 vertebra on the AP projection not identified on the lateral projection likely umbilical piercing. IMPRESSION: Mild scoliosis. Electronically signed by: Kishor Aparicio MD 05/19/2025 09:59 AM [facility]
--- NOTE | ~2025-05-19 | XR_ITS ---
EXAMINATION: XR THORACIC SPINE CLINICAL INFORMATION: M54.9 - Dorsalgia, unspecified COMPARISON: Correlated to chest x-ray dated May 17, 2023. TECHNIQUE: AP and lateral views FINDINGS: S-shaped curvature of the thoracolumbar spine with a dextroconvex curvature apex at C5-6 level and levoconvex curvature apex at T11-T12. No acute cortical disruption or gross malalignment. No lytic or blastic lesions. XR/XR thoracic spine 2V IMPRESSION: Scoliosis, thoracolumbar spine. EXAMINATION: XR LUMBOSACRAL SPINE CLINICAL INFORMATION: M54.9 - Dorsalgia, unspecified COMPARISON: None available. TECHNIQUE: AP and lateral views FINDINGS: No acute cortical disruption or malalignment. No lytic or blastic lesions. Mild S-shaped curvature of the lumbar spine. There is a metallic object overlapping the L4 vertebra on the AP projection not identified on the lateral projection likely umbilical piercing. IMPRESSION: Mild scoliosis. Electronically signed by: Kishor Aparicio MD 05/19/2025 09:59 AM [facility]
== END 2025-05-19 08:32 | disposition home or self-care (01) ==
LOC: HO.XRAY 08:31
PROVIDERS: PCP Internal Medicine; Visit Provider Internal Medicine
DX: M54.50 Low back pain, unspecified (principal); Z13.31 Encounter for screening for depression; Z13.39 Encounter for screening examination for other mental health and behavioral disorders; G89.29 Other chronic pain; D22.9 Melanocytic nevi, unspecified
CPT/HCPCS: 72070; 72100; 96127

== ENCOUNTER → 2025-05-19 09:33 | Outpatient (BNV) | payer OTHER, SELFPAY | PROVIDERS: PCP Internal Medicine; Visit Provider Radiology Diagnostic Radiology | DX: M41.87 Other forms of scoliosis, lumbosacral region (principal); M41.85 Other forms of scoliosis, thoracolumbar region | CPT/HCPCS: 72070; 72100 ==

== ENCOUNTER 2025-05-20 09:08 | Outpatient (REF) | payer OTHER, SELFPAY ==
[2025-05-20 09:19] LABS: MANUAL DIFF FLAG NO
[2025-05-20 09:45] LABS: Hematocrit 43.3 % (37.0-47.0); Hemoglobin 14.1 g/dl (12.0-16.0); Imm Gran Abs Auto 0.02 X10*3/uL (0.00-0.03); Imm Gran Pct Auto 0.3 % (0.0-0.4); Lymphocytes Absolute Auto 1.9 X10*3/uL (1.2-4.9); Mean Corpuscular HGB Conc 32.6 g/dl (31.0-35.0); Mean Corpuscular Hemoglobin 29.4 pg (27.0-33.0); Mean Corpuscular Volume 90.2 fL (80.0-98.0); NRBC Abs Auto 0.000 X10*3/uL (0.0-0.012); NRBC Pct Auto 0.0 /100WBC (0.0-0.2); Platelet Count 221 X10*3/uL (160-400); Red Blood Count 4.80 X10*6/uL (4.20-5.50); White Blood Count 7.3 X10*3/uL (4.8-10.8)
--- OUTSIDE RECORDS SUMMARY | 2025-05-20 09:48 | XMS_ITS | Clinical Summary ---
Author Organization [facility] Address [address] [place] [id number] Phone Care Team Providers Care Tour Guide Name Role Phone Pcp, Unknown Primary Care [...] file Medical Devices Not on file Insurance [employer] Member Subscriber Plan / Payer (Ef fective 2020-Present) Name:Shaye Bates Relation to Subscriber:Self Name:Shaye Bates Payer ID:[id number] ([facility]) Type:PPO Address: [address] [address] [employer] Member Subscriber Plan / Payer (Ef fective 2020-Present) Name:Shaye Bates Relation to Subscriber:Self Name:Shaye Bates Payer ID:[id number] (NAIC) Type:PPO Address: [address] [employer] Member Subscriber Plan / Payer (Ef fective 2020-Present) Name:Shaye Bates Relation to Subscriber:Self Name:Shaye Bates Payer ID:[id number] (NA) Type:PPO Address: [address] [employer] [place] [address] BENEFITS ADMINISTRAT[employer] Care Teams Tour Guide Relationship Specialty Start Date End Date Pcp, Unknown PCP - General 06/27/23 Additional Source Comments The information contained in this document represents components of the legal health record. It is not the complete legal health record.[facility]
[2025-05-20 10:54] LABS: Alanine Aminotransferase 9 U/L (0-31); Albumin Level 4.7 g/dL (3.5-5.0); Alkaline Phosphatase 131 U/L (39-117); Anion Gap 11 (12-20); Aspartate Amino Transferase 21 U/L (5-31); Blood Urea Nitrogen 21 mg/dL (9-16); Calcium 9.4 mg/dL (8.4-10.2); Carbon Dioxide 28 mmol/L (22-29); Chloride 108 mmol/L (96-108); Cholesterol 161 mg/dL (<200); Estimated Glomerular Filt Rate > 60; HDL Cholesterol 50 mg/dL (>40); Potassium 4.3 mmol/L (3.3-5.1); Sodium 143 mmol/L (135-145); Total Protein 7.2 g/dL (6.5-8.0); Triglycerides 61 mg/dL (<150)
[2025-05-20 11:52] LABS: Free T4 (Free Thyroxine) 0.99 ng/dL (0.71-1.85)
== END 2025-05-20 09:09 | disposition home or self-care (01) ==
LOC: HO.LAB 09:08
PROVIDERS: PCP Internal Medicine; Visit Provider Internal Medicine
DX: Z00.00 Encounter for general adult medical examination without abnormal findings (principal); R00.2 Palpitations; R73.09 Other abnormal glucose; I49.9 Cardiac arrhythmia, unspecified; Z13.6 Encounter for screening for cardiovascular disorders
CPT/HCPCS: 36415; 80053; 80061; 84439; 84443; 85025